=== PATIENT | male | born 1970 | race Caucasian/White ===

== ENCOUNTER 2025-05-04 07:57 | Outpatient (AMB) | payer BC, SELFPAY ==
--- OUTSIDE RECORDS SUMMARY | 2021-12-28 15:49 | XMS_ITS | Encounter Summary ---
Author Organization [facility] Address [address] [place] [address] Care Team Providers Care Aircraft Power Plant Assembler Name Role Phone Alyson Maher MD Unavailable [phone] Will Roman MD Primary Care Provider Encounter Details Date Type Department Care Team (Late st Contact Info) Description 12/28/2021 3:49 PM EDT Hospital Encounter [facility] [address] [place] [address] Jah Bess PA Social History [...] on filedocumented in this encounter Care Teams Aircraft Power Plant Assembler Relationship Specialty Start Date End Date Will Roman MD PCP - General Medicine Hospitalist 05/26/19 Alyson Maher MD Hematology Oncology 04/04/19 documented as of this encounter
--- OUTSIDE RECORDS SUMMARY | 2024-08-08 14:19 | XMS_ITS | Encounter Summary ---
Author Organization [facility] Address [address] [place] [address] Care Team Providers Care Delinquent Account Clerk Name Role Phone Alyson Maher MD Unavailable [phone] Will Roman MD Primary Care Provider Will Roman MD Unavailable [phone] Encounter Details Date Type Department Care Team (Late st Contact Info) Description 08/08/2024 1:19 PM EST Hospital Encounter [facility] [address] [place] [address] Social History Tobacco Use Types Packs/Day Years [...] EDT Sexual Orientation Choose not to disclose 2022 9:10 AM EDT documented as of this encounter Plan of Treatment Not on file documented as of this encounter Procedures Procedure Name Priority Date/Time Associated Diagnosis Comments XR CHEST 2 VIEWS STAT 08/08/2024 1:28 PM EST Acute cough documented in this encounter Results * XR Chest 2 views (08/08/2024 1:28 PM EST) Anatomical Region Laterality Modality Chest Computed Radiogr aphy 08/08/2024 1:28 PM EST Impressions 08/08/2024 1:30 PM EST 1. No evidence of focal consolidation or pleural effusion. 2. Question nipple versus nodule right lower lung zone. A Significant finding has been communicated to Radiology Nail Specialist for provider notification via the [employer] Findings Application on 08/08/2024 1:30 PM, Message ID [id number]. Narrative 08/08/2024 1:30 PM EST XR CHEST 2 VIEWS: 08/08/2024 1:19 PM CLINICAL HISTORY: Cough x 1 week with fever, rule out pneumonia. Acute cough. COMPARISON:There are no prior studies for comparison FINDINGS: The osseous structures are intact. No focal lobar consolidation. No evidence of pleural effusion. No evidence of pneumothorax. Small nodularity superimposed right lower lung zone possibly representing nipple shadow. Consider repeat examination with nipple markers. The heart and mediastinum are unremarkable. Procedure Note Alfie Montero MD - 08/08/2024 XR CHEST 2 VIEWS: 08/08/2024 1:19 PM CLINICAL HISTORY: Cough x 1 week with fever, rule out pneumonia. Acute cough. COMPARISON:There are no prior studies for comparison FINDINGS: The osseous structures are intact. No focal lobar consolidation. No evidence of pleural effusion. No evidence of pneumothorax. Small nodularity superimposed right lower lung zone possibly representingnipple shadow. Consider repeat examination with nipple markers. The heart and mediastinum are unremarkable. IMPRESSION: 1. No evidence of focal consolidation or pleural effusion. 2. Question nipple versus nodule right lower lung zone. A Significant finding has been communicated to Radiology Nail Specialist forprovider notification via the [employer] FindingsApplication on 08/08/2024 1:30 PM, Message ID [id number]. Aaron Alvarado II, RADHIKA IMTish DIAGNOSTIC IMAGING ORDERABLES Final Result documented in this encounter Visit Diagnoses Not on filedocumented in this encounter Care Teams Delinquent Account Clerk Relationship Specialty Start Date End Date Will Roman MD PCP - General Medicine Hospitalist 05/26/19 Will Roman MD [address] [place] [address] PCP - [place] [employer] Attributed 07/12/24 Alyson Maher MD Hematology Oncology 04/04/19 documented as of this encounter
--- OUTSIDE RECORDS SUMMARY | 2025-05-03 14:30 | XMS_ITS | Encounter Summary ---
Author Organization [facility] Address [address] [place] [address] Care Team Providers Care Pin Drafting Machine Operator Name Role Phone Will Roman Primary Care Provider [phone] Reason for Visit * Reason Comments Follow-up Encounter Details Date Type Department Care Team (Latest Contact Info) Description 05/03/2025 2:30 PM EDT Office Visit Cardiology - [place] [address] [facility] [address] [place] [id number] Pablo Sullivan MD [address] [facility] [address] [place] [phone] ASHD (arteriosclerotic heart disease) (Primary Dx); Pure hypercholesterolemia Social History Tobacco Use Types Packs/Day Years Used Date Smoking Tobacco: Never Smokeless Tobacco: Never Alcohol Use Standard Drinks/Week Comments Yes 28 (1 standard drink = 0.6 oz pu re alcohol) Sex and Gender Information Value Date Recorded Sex Assigned at Not on file Legal Sex Male 7:29 AM EST Gender Identity Not on file Sexual Orientation Not on file documented as of this encounter Last Filed Vital Signs Vital Sign Reading Time Taken Comments Blood Pressure 120/86 05/03/2025 2:56 PM EDT Pulse 55 05/03/2025 2:56 PM EDT Temperature - - Respiratory Rate - - Oxygen Saturation - - Inhaled Oxygen Concentration - - Weight 70.8 kg (156 lb) 05/03/2025 2:56 PM EDT Height 167.6 cm (5' 6 ) 05/03/2025 2:56 PM EDT Body Mass Index 25.18 05/03/2025 2:56 PM EDT documented in this encounter Progress Notes * Pablo Sullivan MD - 05/03/2025 2:30 PM EDT CARDIOLOGY OFFICE NOTE Name: Faheem Richards Date of : 1970 Age: 54 y.o. Gender: male Visit Date: 05/03/2025 Primary: Andrhina Roman HISTORY & PHYSICAL EXAM CC / HPI: Faheem Richards presents to me for follow-up. Patient presents for follow-up and he isdoing well from a cardiac standpoint his biggest issue is he is having right foot pain is being followed by podiatry. He usually is very active however because of the foot issues and leg issues he has been limited. Reviewing his blood work the blood work previous to this last 1 was excellent however the last 1 did show elevated triglycerides and admittedly he has been using a lot of carbohydratesand also drinking a fair amount of beer and also because of his foot he has been less active and that likely explains his high triglycerides. ASSESSMENT 1. ASHD/coronary calcium score of 1786.7 done 10/22/2021 2. Hyperlipidemia RECOMMENDATION / PLAN Cardiac catheterization at [facility] done 01/03/2022 showed nonobstructive coronary disease. He has been clinically stable at this point we just continue aggressive risk factor modification. Cholesterol appears to be acceptable and the one previous to the last blood work was excellent he just has to cut down on his carbohydrates we will repeat his blood work if his triglycerides remain elevated we can consider omega-3 fish oil and/or fenofibrate. Stable from a cardiac standpoint I am happy to see him on a yearly basis sooner if there is any problems. REVIEW OF SYSTEMS Regarding the patient symptoms, denies any chest pain, shortness of Breath, PND, orthopnea , pre-syncope , or syncopal events and or palpititation. Past Cardiovascular / Medical / Surgical MEDICATIONS Medications Ordered Prior to Encounter[1] Allergies: is allergic to latex and nsaids (non-steroidal anti-inflammatory drug). Social History[2] Problem List[3] Medical History[4] Vitals: 05/03/25 1456 BP: 120/86 Pulse: 55 PHYSICAL EXAM BP Readings from Last 3 Encounters: 05/03/25 120/86 09/14/24 120/78 04/13/24 124/82 Pulse Readings from Last 3 Encounters: 05/03/25 55 09/14/24 67 04/13/24 62 Wt Readings from Last 3 Encounters: 05/03/25 70.8 kg (156 lb) 09/14/24 71.2 kg (157 lb) 04/13/24 70.8 kg (156 lb) Body mass index is 25.18 kg/m??. Appearance: Conversant, no acute distress. Eyes: Normal conjunctiva and lids. No scleral icterus. ENMT: Moist oropharynx. Chest: Clear to auscultation with normal effort and excursion. CV Exam: Regular rate and rhythm S1-S2 negative murmurs clicks rubs noted. Abdomen: NABS/ soft, non tender.Positive bowel sounds. Extremeties: Well perfused. No cords, clubbing. Edema: Negative Skin:No visible bruising. Neuro: Alert, oriented, and appropriate. Grossly non focal. Psychiatric: Normal mood and affect. PERTINENT CARDIOVASCULAR TESTS & PROCEDURES Encounter Date: 05/03/25 ECG 12 lead Impression Sinus bradycardia with first-degree AV block Minimal voltage criteria for LVH Lab Results Component Value Date CHOL 204 (H) 03/01/2025 HDL 47 03/01/2025 LDL 03/01/2025 Comment: LDL cholesterol not calculated. Triglyceride levels greater than 400 mg/dL invalidate calculated LDL results. Reference range: <100 Desirable range <100 mg/dL for primary prevention; <70 mg/dL for patients with CHD or diabetic patients with > or = 2 CHD risk factors. LDL-C is now calculated using the Luis-Fauzia calculation, which is a validated novel method providing better accuracy than the Friedewald equation in the estimation of LDL-C. Luis ROSARIO et al. NAIDA. 2013;310(19): 4784-3653 (http://education.CohesiveFT.Xeros/faq/KBU997) TRIG 434 (H) 03/01/2025 No results found for this or any previous visit. No results found for: NA , K , CL , CO2 , GLUCOSE , BUN , CREATININE , CALCIUM , PROT , ALBUMIN , BILITOT , AST , ALT , URICACID , PHOS , MG , ALKPHOS , CKTOTAL , EGFR Pablo Sullivan MD, , [facility] Cardiac and Vascular Medicine [1] Current Outpatient Medications on File Prior to Visit Medication Sig Dispense Refill aspirin 81 mg chewable tablet Chew 1 tablet (81 mg total) daily. atorvastatin (LIPITOR) 80 mg tablet TAKE 1 TABLET BY MOUTH EVERY DAY 90 tablet 3 cholecalciferol (VITAMIN D-3) 25 mcg (1,000 unit) capsule Take 3 capsules (3,000 Units total) by mouth daily. ezetimibe (ZETIA) 10 mg tablet Take 1 tablet (10 mg total) by mouth 1 (one) time each day. 90 tablet 2 albuterol HFA (PROAIR HFA ; PROVENTIL HFA ; VENTOLIN HFA) 90 mcg/actuation inhaler Inhale 1-2 puffsby mouth every 6 hours as needed. (Patient not taking: Reported on 05/03/2025) budesonide (PULMICORT) 180 mcg/actuation inhaler Inhale 2 puffs by mouth 2 times daily. (Patient not taking: Reported on 05/03/2025) folic acid (FOLVITE) 400 mcg tablet Take 1 tablet (400 mcg total) by mouth daily. (Patient not taking: Reported on 05/03/2025) magnesium oxide 500 mg capsule Take 1 tablet by mouth daily. (Patient not taking: Reported on 05/03/2025) multivitamin tablet Take 1 tablet by mouth daily. (Patient not taking: Reported on 05/03/2025) predniSONE (DELTASONE) 50 mg tablet Take 1 tablet (50 mg total) by mouth 1 (one) time each day. with food (Patient not taking: Reported on 05/03/2025) No current facility-administered medications on file prior to visit. [2] Social History Tobacco Use Smoking status: Never Smokeless tobacco: Never Substance Use Topics Alcohol use: Yes Alcohol/week: 28.0 standard drinks of alcohol Drug use: No [3] Patient Active Problem List Diagnosis ASHD (arteriosclerotic heart disease) Pure hypercholesterolemia [4] Past Medical History: Diagnosis Date Alcohol dependence ([facility] V24, [facility] V28) DX:Alcohol dependence ([facility]) Asthma DX:Asthma Diplopia DX:Diplopia;COMMENT:S/P R ORBITAL FRACTURE Glaucoma DX:Glaucoma;COMMENT:BORDERLINE Hyperlipidemia DX:Hyperlipidemia Lung tumor (benign) DX:Lung tumor (benign) Osteoarthritis DX:Osteoarthritis Pneumonia DX:Pneumonia documented in this encounter Plan of Treatment Upcoming Encounters Date Type Department Care Team (Late st Contact Info) Description 05/03/2026 2:30 PM EDT Office Visit Cardiology - [place] [address] [place] [address] Pablo Sullivan MD [address] [place] [address] Scheduled Orders Name Type Priority Associated Diagnoses Orde r Schedule Lipid panel Lab Routine ASHD (arteriosclerotic heart disease) Pure hypercholesterolemia 1 Occurrences starting 05/03/2025 until 05/03/2026 LDL cholesterol, direct Lab Routine ASHD (arteriosclerotic heart disease) Pure hypercholesterolemia 1 Occurrences starting 05/03/2025 until 05/03/2026 documented as of this encounter Procedures Procedure Name Priority Date/Time Associated Diagnosis Comments ECG 12-LEAD Routine 05/03/2025 4:38 PM EDT ASHD (arteriosclerotic heart disease) Pure hypercholesterolemia documented in this encounter Results * ECG 12 lead (05/03/2025 4:38 PM EDT) Impressions Pablo Sullivan MD - 05/03/2025 4:38 PM EDT Sinus bradycardia with first-degree AV block Minimal voltage criteria for LVH us Pablo Sullivan MD ECG ORDERABLES Final Result documented in this encounter Visit Diagnoses Diagnosis ASHD (arteriosclerotic heart disease)- Primary Coronary atherosclerosis of unspecified type of vessel, [place] or graft Pure hypercholesterolemia documented in this encounter Care Teams Pin Drafting Machine Operator Relationship Specialty Start Date End Date Jessie Mukeshrhina [address] [facility] [place] PCP - General Family Medicine 09/04/21 documented as of this encounter
--- OUTSIDE RECORDS SUMMARY | 2025-05-04 08:00 | XMS_ITS | Encounter Summary ---
Author Organization [facility] Address [address] [place] [address] Care Team Providers Care Logistics Technician Name Role Phone Alyson Maher MD Unavailable Will Roman MD Primary Care Provider [phone] Will Roman MD Unavailable Pablo Sullivan MD Unavailable [phone] Will Roman MD Unavailable Encounter Details Date Type Department Care Team (Late st Contact Info) Description 07/11/2019 Scanned Document [facility] Heart & V[facility] [place] at [address] [phone] Alyson Maher MD [address] [place] [address] Social History Tobacco Use Types Packs/Day Years Used Date Smoking Tobacco: Never Smokeless Tobacco: Never Alcohol Use Standard Drinks/Week Comments Yes 0 (1 standard drink = 0.6 oz pur e alcohol) social Sex and Gender Information Value Date Recorded Sex Assigned at Male 12/21/2022 9:10 AM EDT Legal Sex Male 8:50 AM EDT Gender Identity Male 12/21/2022 9:10 AM EDT Sexual Orientation Choose not to disclose 2022 9:10 AM EDT documented as of this encounter Plan of Treatment Not on file documented as of this encounter Visit Diagnoses Not on filedocumented in this encounter Care Teams Logistics Technician Relationship Specialty Start Date End Date Will Roman MD PCP - General Medicine Hospitalist 05/26/19 Will Roman MD [address] [address] PCP - [place] [employer] Attributed 02/10/20 08/11/21 Will Roman MD [address] [address] PCP - [place] [employer] Attributed 07/12/24 Alyson Maher MD Hematology Oncology 04/04/19 Pablo Sullivan MD [address] [address] Cardiovascular Disease 09/12/24 documented as of this encounter
--- OUTSIDE RECORDS SUMMARY | 2025-05-04 08:00 | XMS_ITS | Encounter Summary ---
Author Organization [facility] Address [address] [place] [address] Care Team Providers Care Medical Coding Specialist Name Role Phone Alyson Maher MD Unavailable [phone] Manohar Jensen MD Primary Care Provider [phone] Will Roman MD Primary Care Provider [phone] Will Roman MD Unavailable [phone] Pablo Sullivan MD Unavailable [phone] Will Roman MD Unavailable [phone] Encounter Details Date Type Department Care Team (Late st Contact Info) Description 05/22/2019 Scanned Document [facility] ORTHO SURGERY SCAN Orthopedic Surgery, Scan Social History Tobacco Use Types Packs/Day Years [...] on filedocumented in this encounter Care Teams Medical Coding Specialist Relationship Specialty Start Date End Date Manohar Jensen MD [address] [facility] [address] [place] [address] PCP - General Internal Medicine 05/01/19 05/25/19 Will Roman MD [address] [facility] [address] [place] [address] PCP - General Medicine Hospitalist 05/26/19 Will Roman MD [address] [place] [address] PCP - [place] [employer] Attributed 02/10/20 08/11/21 Will Roman MD [address] [place] [address] PCP - [place] [employer] Attributed 07/12/24 Alyson Maher MD Hematology Oncology 04/04/19 Pablo Sullivan MD [address] [place] [address] Cardiovascular Disease 09/12/24 documented as of this encounter
--- OUTSIDE RECORDS SUMMARY | 2025-05-04 08:00 | XMS_ITS | Encounter Summary ---
Author Organization Formerly [facility] Address [address] [place] [address] Care Team Providers Care Brewery Technician Name Role Phone Alyson Maher MD Unavailable [phone] Will Roman MD Primary Care Provider Pablo Sullivan MD Unavailable [phone] Will Roman MD Unavailable [phone] Reason for Visit * Reason Comments Medication Refill Encounter Details Date Type Department Care Team (Late st Contact Info) Description 02/06/2022 Refill [facility] Primary Care [address] [place], [place] [phone] Will Roman MD [address] [place] [address] [address] [place], [place] Acute right ankle pain; Closed avulsion fracture of right ankle, initial encounter; Occupational injury Social History Tobacco Use Types Packs/Day Years Used Date Smoking Tobacco: Never Smokeless Tobacco: Never Alcohol Use Standard Drinks/Week Comments Yes 42 (1 standard drink = 0.6 oz pu re alcohol) 6 daily PHQ-2 Answer Date Recorded PHQ-2 Total Score [...] documented as of this encounter Visit Diagnoses Diagnosis Acute right ankle pain Closed avulsion fracture of right ankle, initial encounter Occupational injury documented in this encounter Care Teams Brewery Technician Relationship Specialty Start Date End Date Will Roman MD PCP - General Medicine Hospitalist 05/26/19 Will Roman MD [address] [place] [address] PCP - [place] [employer] Attributed 07/12/24 Alyson Maher MD Hematology Oncology 04/04/19 Pablo Sullivan MD Cardiovascular Disease 09/12/24 documented as of this encounter
--- OUTSIDE RECORDS SUMMARY | 2025-05-04 08:00 | XMS_ITS | Encounter Summary ---
Author Organization Formerly [facility] Address [address] [place] [address] Care Team Providers Care Checker Name Role Phone Alyson Maher MD Unavailable [phone] Will Roman MD Primary Care Provider [phone] Pablo Sullivan MD Unavailable [phone] Will Roman MD Unavailable [phone] Encounter Details Date Type Department Care Team (Late st Contact Info) Description 01/15/2022 Scanned Document [facility] PRIMARY [facility] SCAN Primary Care, Scan Social History Tobacco Use Types Packs/Day [...] not to disclose 2022 9:10 AM EDT COVID-19 Exposure Response Date Recorded In the last 10 days, have yo u been in contact with someone who was confirmed or suspected to have Coronavirus/COVID-19? Unable to assess 12/28/2021 3:07 PM EDT documented as of this encounter Plan of Treatment Not on file documented as of this encounter Visit Diagnoses Not on filedocumented in this encounter Care Teams Checker Relationship Specialty Start Date End Date Will Roman MD PCP - General Medicine Hospitalist 05/26/19 Will Roman MD [address] [address] PCP - [place] [employer] Attributed 07/12/24 Alyson Maher MD Hematology Oncology 04/04/19 Pablo Sullivan MD Cardiovascular Disease 09/12/24 documented as of this encounter
--- OUTSIDE RECORDS SUMMARY | 2025-05-04 08:01 | XMS_ITS | Encounter Summary ---
Author Organization [facility] Address [address] [place] [address] Care Team Providers Care Risk Consulting Treasury Director Name Role Phone Alyson Maher MD Unavailable [phone] Will Roman MD Primary Care Provider Will Roman MD Unavailable Pablo Sullivan MD Unavailable [phone] Will Roman MD Unavailable Encounter Details Date Type Department Care Team (Late st Contact Info) Description 08/15/2019 Scanned Document [facility] [place] [facility] [address] [place] [phone] Tucker Murray MD [address] [place] [address] Social History Tobacco Use Types Packs/Day Years Used Date Smoking Tobacco: Never Smokeless Tobacco: Never Alcohol Use Standard Drinks/Week Comments Yes 6 (1 standard drink = 0.6 oz pur e alcohol) daily Sex and Gender Information Value Date Recorded [...] on filedocumented in this encounter Care Teams Risk Consulting Treasury Director Relationship Specialty Start Date End Date Will Roman MD PCP - General Medicine Hospitalist 05/26/19 Will Roman MD [address] [address] PCP - [place] [employer] Attributed 02/10/20 08/11/21 Will Roman MD [address] [address] PCP - [place] [employer] Attributed 07/12/24 Alyson Maher MD Hematology Oncology 04/04/19 Pablo Sullivan MD [address] [address] Cardiovascular Disease 09/12/24 documented as of this encounter
--- OUTSIDE RECORDS SUMMARY | 2025-05-04 08:01 | XMS_ITS ---
[facility] Name [facility] Results Test Name/Text Value Interpretation Date Range Source Prealb SerPl-mCnc 28.0 mg/dL Normal 03/02/2025 21 - 43 [facility] Bilirub SerPl-mCnc 1.3 mg/dL Above high normal 03/02/2025 0. 2 - 1.2 [facility] BUN SerPl-mCnc 18.0 mg/dL Normal 03/02/2025 7 - [address] Chloride SerPl-sCnc 101.0 mmol/L Normal 03/02/2025 98 - 1 10 [facility] BUN/Creat SerPl SEE NOTE: 03/02/2025 6 - [address] Sodium SerPl-sCnc 137.0 mmol/L Normal 03/02/2025 135 - 14 6 [facility] Potassium SerPl-sCnc 4.4 mmol/L Normal 03/02/2025 3.5 - 5 .3 [facility] ALT SerPl-cCnc 27.0 U/L Normal 03/02/2025 9 - 46 [facility] CO2 SerPl-sCnc 27.0 mmol/L Normal 03/02/2025 20 - 32 [facility] Albumin/Glob SerPl 1.6 (calc) Normal 03/02/2025 1 - 2.5 [facility] eGFRcr SerPlBld CKD-EPI 2020 102.0 mL/min/1.73m2 Normal 03/02/2025 - [facility] AST SerPl-cCnc 29.0 U/L Normal 03/02/2025 10 - 35 [facility] Calcium SerPl-mCnc 9.5 mg/dL Normal 03/02/2025 8.6 - 10.3 [facility] Glucose SerPl-mCnc 99.0 mg/dL Normal 03/02/2025 65 - 139 [facility] Albumin SerPl-mCnc 4.4 g/dL Normal 03/02/2025 3.6 - 5.1 [facility] Creat SerPl-mCnc 0.84 mg/dL Normal 03/02/2025 0.7 - 1.3 Q [facility] ALP SerPl-cCnc 89.0 U/L Normal 03/02/2025 35 - 144 [facility] Globulin Ser Calc-mCnc 2.8 g/dL (calc) Normal 03/02/2025 1.9 - 3.7 [facility] Prot SerPl-mCnc 7.2 g/dL Normal 03/02/2025 6.1 - 8.[address] Basophils # Bld Auto 68.0 cells/uL Normal 03/02/2025 0 - 200 [facility] Platelet # Bld Auto 233.0 Thousand/uL Normal 03/02/2025 140 - 400 [facility] RDW RBC Auto 12.8 % Normal 03/02/2025 11 - 15 [facility] RBC Auto 92.2 fL Normal 03/02/2025 80 - 100 [facility] Lymphocytes # Bld Auto 2246.0 cells/uL Normal 03/02/2025 850 - 3900 [facility] Lymphocytes NFr Bld Auto 39.4 % Normal 03/02/2025 [facility] PMV Bld Woody-Mayda 10.8 fL Normal 03/02/2025 7.5 - 12.5 [facility] Hgb Bld-mCnc 14.3 g/dL Normal 03/02/2025 13.2 - 17.1 [facility] Neutrophils NFr Bld Auto 48.0 % Normal 03/02/2025 [facility] Monocytes NFr Bld Auto 8.4 % Normal 03/02/2025 [facility] MCH RBC Qn Auto 30.9 pg Normal 03/02/2025 27 - [address] Eosinophil NFr Bld Auto 3.0 % Normal 03/02/2025 [facility] Basophils NFr Bld Auto 1.2 % Normal 03/02/2025 [facility] Monocytes # Bld Auto 479.0 cells/uL Normal 03/02/2025 200 - 950 [facility] Neutrophils # Bld Auto 2736.0 cells/uL Normal 03/02/2025 1500 - 7800 [facility] MCHC RBC Auto-EntMCnc 33.5 g/dL Normal 03/02/2025 32 - 36 [facility] RBC # Bld Auto 4.63 Million/uL Normal 03/02/2025 4.2 - 5.8 [facility] Hct VFr Bld Auto 42.7 % Normal 03/02/2025 38.5 - 50 [facility] EST WBC # Bld Auto 5.7 Thousand/uL Normal 03/02/2025 3.8 - 10.8 [facility] Eosinophil # Bld Auto 171.0 cells/uL Normal 03/02/2025 15 - 500 [facility] Trigl SerPl-mCnc 122.0 mg/dL Normal 09/13/2024 - 150 [facility] NonHDLc SerPl-mCnc 78.0 mg/dL (calc) Normal 09/13/2024 - 130 [facility] LDLc SerPl Calc-mCnc 58.0 mg/dL (calc) Normal 09/13/2024 [facility] Cholest/HDLc SerPl 2.3 (calc) Normal 09/13/2024 - 5 [facility] HDLc SerPl-mCnc 59.0 mg/dL Normal 09/13/2024 - QU EST Cholest SerPl-mCnc 137.0 mg/dL Normal 09/13/2024 - 200 [facility] PROSTATE SPECIFIC AG TOTAL 0.5 ng/mL Normal 02/28/2024 - [facility] PSA, % FREE 40.0 % (calc) Normal 02/28/2024 25 - [facility] R[facility]OL FREE PSA 0.2 ng/mL Normal 02/28/2024 [facility] History of Medication Use Medication Directions Dispensed Refills Start Date End Date Stat 09/21/2024 5 active budesonide (PULMICORT) 180 MCG/ACT inhaler Inhale 2 puffs 2 (two) times a day. Rinse mouth after use. Please instruct patient on use of this inhaler 08/31/2024 active budesonide (PULMICORT) 180 mcg/actuation inhaler Inhale 2 puffs by mouth 2 times daily. 08/31/2024 active meloxicam (MOBIC) 15 MG tablet 08/21/2024 active 08/17/2024 5 active 08/17/2024 5 active acetaminophen (TYLENOL) tablet 975 mg 975 mg, Oral, Once, On Wed08/08/24 at 1330, For 1 dose 08/08/2024 5 completed albuterol (PROVENTIL HFA; VENTOLIN HFA) 108 (90 Base) MCG/ACT inhaler Inhale 1-2 puffs 4 times daily (every 6 hours) as needed for wheezing. 08/08/2024 active albuterol HFA (PROAIR HFA ; PROVENTIL HFA ; VENTOLIN HFA) 90 mcg/actuation inhaler Inhale 1-2 puffs by mouth every 6 hours as needed. 08/08/2024 active azithromycin (ZITHROMAX) 250 MG tablet Take 2 tablets on day 1, then 1 tablet a day for days 2 through 5 08/08/2024 active predniSONE (DELTASONE) 50 mg tablet Take 1 tablet (50 mg total) by mouth 1 (one) time each day. with food 08/08/2024 active predniSONE (DELTASONE) 50 MG tablet Take 1 tablet (50 mg total) by mouth daily. With food. 08/08/2024 active proMETHAZINE-dextrome thorphan (proMETHAZINE-DM) 6.25-15 MG/5ML syrup Take 5 mL by mouth 4 times daily (every 6 hours) as needed for cough. 08/08/2024 active 07/18/2024 5 completed 07/18/2024 5 active 07/18/2024 5 completed 07/18/2024 5 completed 07/18/2024 5 completed 07/18/2024 5 completed 07/18/2024 5 active 07/18/2024 5 completed 07/18/2024 completed 07/18/2024 completed 07/18/2024 completed 07/18/2024 completed atorvastatin (LIPITOR) 80 mg tablet Take 1 tablet (80 mg total) by mouth daily. 09/27/2023 active atorvastatin (LIPITOR) tablet 80 mg Take 1 tablet (80 mg total) by mouth daily. 09/27/2023 active ezetimibe (ZETIA) 10 mg tablet Take 1 tablet (10 mg total) by mouth 1 (one) time each day. 03/30/2023 active ezetimibe (ZeTIA) 10 MG tablet Take 1 tablet (10 mg total) by mouth daily. 03/30/2023 active ezetimibe (ZETIA) tablet 10 mg Take 1 tablet (10 mg total) by mouth daily. 03/30/2023 active predniSONE (DELTASONE) 20 MG tablet Take 1 tablet (20 mg total) by mouth daily. With food. 03/11/2023 active 01/19/2023 3 completed 01/01/2023 3 completed 01/01/2023 3 completed 01/01/2023 3 completed 01/01/2023 3 completed 01/01/2023 3 completed 01/01/2023 3 completed 12/25/2022 5 suspended methocarbamol (ROBAXIN) 750 MG tablet Take 1 tablet (750 mg total) by mouth 3 (three) times a day as needed for muscle spasms (pain). 12/25/2022 active oxyCODONE (ROXICODONE) 5 MG immediate release tablet Take 1-2 tablets (5-10 mg total) by mouth 4 times daily (every 6 hours) as needed (pain). 12/25/2022 active ergocalciferol (VITAMIN D2,DRISDOL) 16265 units Cap Take 1 capsule (50,000 Units total) by mouth once a week. Wednesday12/24/2022 active 09/21/2022 3 completed 09/21/2022 completed 08/18/2022 3 active PANTOprazole (PROTONIX) 40 MG EC tablet Take 1 tablet (40 mg total) by mouth every morning before breakfast. 06/08/2022 active folic acid (FOLVITE) 1 MG tablet Take 1 tablet (1,000 mcg total) by mouth daily. 01/20/2022 active albuterol (PROVENTIL HFA; VENTOLIN HFA) 108 (90 Base) MCG/ACT inhaler Inhale 2 puffs every 4 (four) hours as needed for wheezing or shortness of breath. Please instruct patient on use of this inhaler 08/01/2021 active atorvastatin (LIPITOR) 20 MG tablet TAKE 1 TABLET BY MOUTH EVERY DAY 04/21/2021 suspended acetaminophen (TYLENOL) 500 MG tablet Take 1-2 tablets (500-1,000 mg total) by mouth 3 times daily (every 8 hours) as needed (pain). active ascorbic acid (VITAMIN C) 500 MG tablet Take 1 tablet (500 mg total) by mouth 2 times a day. active Aspirin 81 MG Cap Take by mouth. active aspirin 81 mg chewable tablet Chew 1 tablet (81 mg total) daily. active aspirin enteric coated (ECOTRIN LOW STRENGTH) 81 MG EC tablet Take 1 tablet (81 mg total) by mouth 2 times a day. active atorvastatin (LIPITOR) 80 MG tablet Take 1 tablet (80 mg total) by mouth nightly. active cholecalciferol (VITAMIN D-3) 25 mcg (1,000 unit) capsule Take 3 capsules (3,000 Units total) by mouth daily. active Cholecalciferol (VITAMIN D) 2000 units Cap Take 1 capsule by mouth daily. active Cyanocobalamin (VITAMIN B12 PO) Take by mouth. acti ve folic acid (FOLVITE) 400 mcg tablet Take 1 tablet (400 mcg total) by mouth daily. active magnesium oxide 500 mg capsule Take 1 tablet by mouth daily. active meloxicam (MOBIC) 15 MG tablet Take 1 tablet (15 mg total) by mouth nightly. active Multiple Vitamin tablet Take 1 tablet by mouth daily. active multivitamin tablet Take 1 tablet by mouth daily. active No Known Medications com pleted senna-docusate (SENNA-S) 8.6-50 MG Take 1-2 tablets by mouth 2 (two) times a day as needed for constipation. active Allergies Allergen Reaction Severity Comment Documented Date Source Statu s NSAIDS CHRONIC LIVER DISEASE 09/11/2015 [facility] active NSAIDS (NON-STEROIDAL ANTI-INFLAMMAT ORY DRUG) CHRONIC LIVER DISEASE 09/11/2015 [facility] active LATEX OTHERRASH/DERM ATITISOTHER (SEE COMMENTS) Reaction unknown 08/23/2015 [facility] active Problems Problem Status Onset Date Problem Type Date of Resolution Source Hypertriglyceridemia active ProblemAct [facility] Mixed hyperlipidemia active ProblemAct [facility] Mitral regurgitation active ProblemAct [facility] ASHD (arteriosclerotic heart disease) active EncounterDiagnosisAct [facility]_T HSFRAN Arthritis of knee active ProblemAct [facility] Liver enzyme elevation active ProblemAct [facility] Mitral valve insufficiency active ProblemAct [facility] Hypertriglyceridemia active ProblemAct [facility] Malaise active ProblemAct [facility] CAD (coronary artery disease) active ProblemAct [facility] Epigastric pain active ProblemAct [facility] Asthma active ProblemAct [facility] Erectile dysfunction active ProblemAct [facility] Elevated ferritin active ProblemAct [facility] Weight loss active ProblemAct [facility] Hyperlipidemia active ProblemAct [facility] T Fatigue active ProblemAct [facility] Dysphagia active ProblemAct [facility] Nausea active ProblemAct [facility] Immunizations Vaccine Date Source Lot Number Status Influenza Virus Trivalent Sp lit Vaccine (MDV) IM 03/26/2022 [facility] [id number] completed Covid-19 MRNA Vaccine - Pfiz er 12+ (Purple Cap) 2021 [facility] [id number] completed Influenza, Quadrivalent (FLU ARIX, AFLURIA, FLULAVAL, FLUZONE) Preservative Free IM 05/03/2021 CCT [id number] completed Covid-19 (Pfizer) Dilution Required 11/07/2020 [facility] [id number] completed Covid-19 (Pfizer) Dilution Required 10/17/2020 [facility] [id number] completed Influenza (AFLURIA/FLUZONE) Inactivated/Split Quadrivalent with Preservative IM 05/14/2020 [facility] completed Influenza (AFLURIA/FLUZONE) Inactivated/Split Quadrivalent with Preservative IM 05/13/2020 [facility] completed Influenza Inactivated/Split Preservative Free IM 04/25/2019 [facility] completed Encounters Encounter Type Encounter Reason Primary Diagnosis Location Date Ambulatory Follow-up Atherosclerotic heart disease of [place] coronary artery without angina pectoris [facility] 5 Ambulatory ROUTINE Unilateral prima ry osteoarthritis, right hip [facility] 5 Ambulatory Pre-op Exam Atherosclerotic heart disease of [place] coronary artery without angina pectoris [facility] 5 Ambulatory Encounter for other preprocedural examination Encounter for other preprocedural examination [facility] 5 Ambulatory Influenza due to oth er identified influenza virus with other respiratory manifestations Influenza due to other identified influenza virus with other respiratory manifestations [facility] 5 Ambulatory Follow-up Follow-up [facility] 5 Ambulatory [facility] 5 Ambulatory Cough Cough [facility] 5 Ambulatory Pure hyperglyceridemia Pure hyperglycerid emia [facility] 4 Ambulatory BENIGN PROSTATIC HYPERPLASIA WITHOUT LOWER URINRY TRACT SYMP [facility] 4 Ambulatory UR Con [facility] 4 Ambulatory Cellulitis of left upper limb Cellulitis of left upper limb [facility] 4 Ambulatory Unilateral prima ry osteoarthritis, right knee [facility] 3 Ambulatory Sprain of anteri or cruciate ligament of right knee, subsequent encounter [facility] 3 Ambulatory Abnormal weight loss [facility] 2 Ambulatory Abnormal weight loss [facility] 2 Ambulatory Alcohol dependen ce, uncomplicated [facility] 2 Ambulatory Abnormal levels of other serum enzymes [facility] 2 Ambulatory Other specified abnormal findings of blood chemistry [facility] 2 Ambulatory Dehydration [facility] 2 Ambulatory [facility] 2 Ambulatory Pain in right an kle and joints of right foot [facility] 2 Ambulatory Acute bronchitis , unspecified [facility] 2 Ambulatory Contact with and (suspected) exposure to covid-19 [facility] 2 Ambulatory Contact with and (suspected) exposure to covid-19 [facility] 2 Ambulatory Contact with and (suspected) exposure to covid-19 [facility] 2 Ambulatory [facility] 1 Care Team Organization Name Specialty Phone Email Start Date End Da te [facility] Primary Care 05/03/2025 [facility] CHANEL Primary Care 11/14/2024 02/16/2025 [facility] 09/10/2024 [facility] 08/21/2024 [facility] CHADWICK Rodriguez Primary Care 07/17/2024 [facility] 05/22/2024 [facility] Primary Care 05/19/2024 [facility] PCP VERIFY Primary Care [facility] 02/25/20242024 [facility] Primary Care 02/25/2024 [facility] Primary Care 02/25/2024 [facility] 05/13/2023 024 [facility] 04/02/2023 024 [facility]/08/[facility]2210[facility] [facility] Primary Care 09/08/202103/26
--- OUTSIDE RECORDS SUMMARY | 2025-05-04 08:01 | XMS_ITS | Encounter Summary ---
Author Organization [facility] Address [address] [place] [address] Care Team Providers Care Verifier Name Role Phone Alyson Maher MD Unavailable Will Roman MD Primary Care Provider Pablo Sullivan MD Unavailable [phone] Will Roman MD Unavailable [phone] Encounter Details Date Type Department Care Team (Late st Contact Info) Description 08/29/2021 Scanned Document [facility] Heart & Vascular [place] [facility] [address] [place] [id number] Pablo Farah, LOIDA [address] [place], [place] [id number] Social History Tobacco Use Types Packs/Day Years Used Date Smoking Tobacco: Never Smokeless Tobacco: Never Alcohol Use Standard Drinks/Week Comments Yes 42 (1 standard drink = 0.6 oz pu re alcohol) 6 daily PHQ-2 Answer Date Recorded PHQ-2 Total Score 0 11/05/2020 Sex and Gender Information Value Date Recorded Sex Assigned at Male 12/21/2022 9:10 AM EDT Legal Sex Male 8:50 AM EDT Gender Identity Male 12/21/2022 9:10 AM EDT Sexual Orientation Choose not to disclose 2022 9:10 AM EDT COVID-19 Exposure Response Date Recorded In the last month, have you been in contact with someone who was confirmed or suspected to have Coronavirus / COVID-19? No / Unsure 08/20/2021 2:51 PM EST documented as of this encounter Plan of Treatment Not on file documented as of this encounter Visit Diagnoses Not on filedocumented in this encounter Care Teams Verifier Relationship Specialty Start Date End Date Will Roman MD PCP - General Medicine Hospitalist 05/26/19 Will Roman MD [address] [place] [address] PCP - [place] [employer] Attributed 07/12/24 Alyson Maher MD Hematology Oncology 04/04/19 Pablo Sullivan MD Cardiovascular Disease 09/12/24 documented as of this encounter
--- OUTSIDE RECORDS SUMMARY | 2025-05-04 08:01 | XMS_ITS | Encounter Summary ---
Author Organization [facility] Address [address] [place] [address] Care Team Providers Care Book Reviewer Name Role Phone Alyson Maher MD Unavailable [phone] Will Roman MD Primary Care Provider [phone] Pablo Sullivan MD Unavailable [phone] Will Roman MD Unavailable [phone] Encounter Details Date Type Department Care Team (Late st Contact Info) Description 12/10/2022 Scanned Document [facility] Dav Rodriguez MD [address] [place] [address] Social History Tobacco Use Types Packs/Day Years [...] on filedocumented in this encounter Care Teams Book Reviewer Relationship Specialty Start Date End Date Will Roman MD PCP - General Medicine Hospitalist 05/26/19 Will Roman MD [address] [place] [address] PCP - [place] [employer] Attributed 07/12/24 Alyson Maher MD Hematology Oncology 04/04/19 Pablo Sullivan MD Cardiovascular Disease 09/12/24 documented as of this encounter
--- OUTSIDE RECORDS SUMMARY | 2025-05-04 08:01 | XMS_ITS | Encounter Summary ---
Author Organization [facility] Address [address] [place] [address] Care Team Providers Care Senior Quality Manager Name Role Phone Alyson Maher MD Unavailable Will Roman MD Primary Care Provider Will Roman MD Unavailable Pablo Sullivan MD Unavailable [phone] Will Roman MD Unavailable [phone] Encounter Details Date Type Department Care Team (Late st Contact Info) Description 04/03/2020 Scanned Document [facility] [address] [id number] Deanne Gibbs MD [address] [place] [address] Social History Tobacco Use Types Packs/Day Years [...] have Coronavirus / COVID-19? No / Unsure 04/06/2020 7:59 AM EDT documented as of this encounter Progress Notes * Maryann Peraza MA - 04/03/2020 12:18 PM EDT Patient received results directly from Dr. Gibbs. Recall in 3 years . PCP forwarded results documented in this encounter Plan of Treatment Not on file documented as of this encounter Procedures Procedure Name Priority Date/Time Associated Diagnosis Comments PATHOLOGY REPORT 04/03/2020 12:0 0 AM EDT documented in this encounter Results * (REPORT) PATHOLOGY REPORT (04/03/2020 12:00 AM EDT) us Deanne Gibbs MD PATHOLOGY/CYTOLOGY ORDERABLES F inal Result documented in this encounter Visit Diagnoses Not on filedocumented in this encounter Care Teams Senior Quality Manager Relationship Specialty Start Date End Date Will Roman MD PCP - General Medicine Hospitalist 05/26/19 Will Roman MD [address] [place] [id number] PCP - [place] [employer] Attributed 02/10/20 08/11/21 Will Roman MD [address] [address] PCP - [place] [employer] Attributed 07/12/24 Alyson Maher MD Hematology Oncology 04/04/19 Pablo Sullivan MD [address] [place] [address] Cardiovascular Disease 09/12/24 documented as of this encounter
--- OUTSIDE RECORDS SUMMARY | 2025-05-04 08:01 | XMS_ITS | Patient Health Record ---
Author Organization [facility] Address [address] [place] [address] Care Team Providers Care Paper Tube Grader Name Role Phone Will Roman Primary Care Provider Unavaila ble Allergies Allergen (clinical drug ingredient) Drug/Non Drug Allergy documented on EMR Reaction Allergy Type Onset Date Status Information temporarily unavailable latex (uncoded) Unknown Allergy Active Reason For Referral No Information Social History Sex Assigned At : Social History Observation Description Sex Assigned At Male Problems Problem Type SNOMED Code ICD Code Onset Dates Problem Status W/U Status Risk Notes Problem Information temporarily unavailable 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 [place] [phone] [id number] [employer] Self - patient is the insured Medical (General) History Medical History History ICD Code bronchiole carcinoid tumor Surgical History Surgery Date(Month/Year) right knee replacxement/acl left hip replacement right lung surgery
--- OUTSIDE RECORDS SUMMARY | 2025-05-04 08:01 | XMS_ITS | Encounter Summary ---
Author Organization [facility] Address [address] [place] [address] Care Team Providers Care Underwriting Clerks Supervisor Name Role Phone Alyson Maher MD Unavailable [phone] Will Roman MD Primary Care Provider [phone] Pablo Sullivan MD Unavailable [phone] Will Roman MD Unavailable [phone] Encounter Details Date Type Department Care Team (Late st Contact Info) Description 01/04/2023 Scanned Document [facility] PRIMARY CARE SCAN Primary Care, Scan [...] on filedocumented in this encounter Care Teams Underwriting Clerks Supervisor Relationship Specialty Start Date End Date Will Roman MD PCP - General Medicine Hospitalist 05/26/19 Will Roman MD [address] [place] [id number] PCP - [place] [employer] Attributed 07/12/24 Alyson Maher MD Hematology Oncology 04/04/19 Pablo Sullivan MD Cardiovascular Disease 09/12/24 documented as of this encounter
--- OUTSIDE RECORDS SUMMARY | 2025-05-04 08:01 | XMS_ITS | Clinical Summary ---
Author Organization [facility] Address [address] [place] [address] Care Team Providers Care Wax Ball Molder Name Role Phone Alyson Maher MD Unavailable [phone] Will Roman MD Primary Care Provider Pablo Sullivan MD Unavailable [phone] Will Roman MD Unavailable [phone] Allergies No known active allergies Medications acetaminophen (TYLENOL) 500 MG tablet Take 1-2 tablets (500-1,000 mg total) by mouth 3 times daily (every 8 hours) as needed (pain). Active albuterol (PROVENTIL HFA; VENTOLIN HFA) 108 (90 Base) MCG/ACT inhalerIndicati ons:Acute bacterial bronchitis Inhale 1-2 puffs 4 times daily (every 6 hours) as needed for wheezing. 1 each 08/08/2024 Active meloxicam (MOBIC) 15 MG tablet 08/21/2024 Active budesonide (PULMICORT) 180 MCG/ACT inhalerIndicati ons:Influenza A Inhale 2 puffs 2 (two) times a day. Rinse mouth after use. Please instruct patient on use of this inhaler 3 each 1 08/31/2024 Active atorvastatin (LIPITOR) 80 MG tablet Take 1 tablet (80 mg total) by mouth daily. Active Active Problems Problem Noted Date Diagnosed Date CAD (coronary artery disease) 09/12/2024 Asthma 08/11/2024 Arthritis of knee 12/28/2022 Liver enzyme elevation 03/24/2022 Assessment & Plan (07/06/2022 9:26 PM EST): Pt with mild LE elevation, AST>ALT and mild indirect hyperbilirubinemia. Patient reports he continues to drink 40-60 beers per week. I counseled him again that this is extremely excessive and will lead to cirrhosis/liver failure and eventual . I advised him once again that he needs to speak to his PCP in order for assistance with alcohol abstinence. For comprehensiveness of work-up, will order hepatitis B and C testing as well as repeat liver enzymes/bilirubin in addition to FibroTest. Assessment & Plan (03/24/2022 9:47 PM EDT): AST trending up to 200s and ALT trending up to 80s over the past year. Mild hyperbilirubinemia 1.4, appears mostly indirect. Patient reports he drinks 40-60 beers per week. I counseled him this is extremely excessive and will lead to cirrhosis/liver failure and eventual . I advised him that he needs to speak to his PCP in order for assistance with alcohol abstinence. I have reached out to the PCP as well to inform her of this. For comprehensiveness of work-up, will order hepatitis B and C testing as well as repeat liver enzymes/bilirubin. Weight loss 03/24/2022 Assessment & Plan (07/06/2022 9:21 PM EST): Pt lost 25 lbs unintentionally earlier this year. Pt weight has been stable for last 3 months. Pt had EGD/Colonoscopy unremarkable for cause of weight loss. Will order CT scan chest/abdomen/pelvis to evaluate - pt has risk factors for malignancy, notably significant daily alcohol use. TSH also ordered to evaluate for thyroid dysfunction. Assessment & Plan (03/24/2022 9:51 PM EDT): Patient reports unintentional weight loss of about 25 pounds over 3 months. Endoscopy and colonoscopy have been ordered to evaluate. Risks/Benefits of procedure discussed and pt has been consented to proceed. Cardiology is evaluating for syncopal episode, preprocedure risk stratification sent to pt's Community Recreation Programmer (also advised pt to follow-up with Cardiology regarding elevated triglycerides/cholesterol). Dysphagia 03/24/2022 Assessment & Plan (07/06/2022 9:31 PM EST): Recent endoscopy without evident cause of dysphagia - no recurrence of previous Schatzki ring and esophageal biopsies negative for EoE (althouth biopsy findings suggestive of uncontrolled acid reflux). Pt notes has not been compliant with PPI - uncontrolled acid reflux may at least be contributing to dysphagia - advised pt to restart PPI and advised to take 30-60 minutes before a meal. Esophageal Manometry also ordered to further evaluate dysphagia. Assessment & Plan (03/24/2022 9:48 PM EDT): Patient noting intermittent dysphagia to pills. Patient has history of Schatzki ring. Patient will be undergoing endoscopy and colonoscopy to evaluate unintentional weight loss, will evaluate for causes of dysphagia during endoscopy. Mitral valve insufficiency 09/04/2020 Erectile dysfunction 10/17/2019 Assessment & Plan (10/17/2019 9:37 AM EDT): Rx for Tadalafil sent to [facility] for 90 days Cause appears to be idiopathic Epigastric pain 05/04/2013 Malaise 05/04/2013 Nausea 05/04/2013 Hypertriglyceridemia Assessment & Plan (10/17/2019 9:54 AM EDT): Repeat labs Continue current management Hyperlipidemia Assessment & Plan (10/17/2019 9:54 AM EDT): Repeat labs Continue current management Elevated ferritin Assessment & Plan (10/17/2019 9:54 AM EDT): Repeat labs for CBC, ferritin, iron, TIBC Fatigue Assessment & Plan (10/17/2019 9:54 AM EDT): Subjectively and objectively appears grossly improved with better management of lipids, triglycerides, and alcohol cessation We will reevaluate labs Follow-up routinely Resolved Problems Problem Noted Date Diagnosed Date Resolved Date Suspected COVID-19 virus infection 11/02/2019 12/14/2022 Assessment & Plan (11/12/2019 3:37 PM EDT): Negative test with concern for false negative. 1. Stay home from work, school, and away from other public places. If you must go out, avoid using any kind of public transportation, ridesharing, or taxis. 2. Monitor your symptoms carefully. If your symptoms get worse, call your healthcare provider immediately. 3. Get rest and stay hydrated. 4. If you have a medical appointment, call the healthcare provider ahead of time and tell them that you have or may have COVID-19. 5. For medical emergencies, call 911 and notify the dispatch personnel that you have or may have COVID-19. 6. Cover your cough and sneezes. 7. Wash your hands often with soap and water for at least 20 seconds or clean your hands with an alcohol-based hand arc air operator that contains at least 60% alcohol. 8. As much as possible, stay in a specific room and away from other people in your home. Also, you should use a separate bathroom, if available. If you need to be around other people in or outside of the home, wear a facemask. 9. Avoid sharing personal items with other people in your household, like dishes, towels, and bedding 10. Clean all surfaces that are touched often, like counters, tabletops, and doorknobs. Use household cleaning sprays or wipes according to the label instructions. Assessment & Plan (11/02/2019 12:09 PM EDT): COVID testing ordered Advised to leave work immediately and quarantine until negative results or if positive 14 days or 3 days after symptom free whichever is longer Provided hotline information if further requirements Counseled re quarantining and isolation from his family at home, mask wearing, glove use Rx renewal for albuterol Colon cancer screening 10/17/201912/14 Assessment & Plan (10/17/2019 9:55 AM EDT): Still due to have colonoscopy but will defer in view of COVID-19 Encounters Date Type Department Care Team Description 04/30/2025 Telephone [facility] [id number] [place] [address] Will Roman MD Referral from Last 3 Months Immunizations Immunization Administration Dates Next Due Covid-19 MRNA Vaccine - Pfizer 12+ (Purple Cap) 2021 Influenza (AFLURIA/FLUZONE) Inactivated/Split Quadrivalent with Preservative IM 05/14/2020,05/13/2020 Influenza Inactivated/Split Preservative Free IM 03/26/2022,04/25/2019 Influenza Virus Trivalent Split Vaccine (MDV) IM 03/26/2022 Influenza, Quadrivalent (FLU ARIX, AFLURIA, FLULAVAL, FLUZONE) Preservative Free IM 05/03/2021 Family History Medical History Relation Name Comments Alcohol abuse Father Father Heart attack Father Father Lung cancer Father Father Alcohol abuse Maternal Grandfather Charreed Colon cancer Maternal Grandfather Charley Cancer Maternal Grandmother No Known Problems Mother No Known Problems Sister Relation Name Status Comments Father Father Maternal Grandfather Karen Maternal Grandmother Mother Alive Sister Alive Social History Tobacco Use Types Packs/Day Years Used Date Smoking Tobacco: Never Smokeless Tobacco: Never Tobacco Cessation:Counseling Given: Not Answered Alcohol Use Standard Drinks/Week Comments Yes 40 [...] not to disclose 2022 9:10 AM EDT Last Filed Vital Signs Vital Sign Reading Time Taken Comments Blood Pressure 114/64 09/12/2024 1:25 PM EST Pulse 70 09/12/2024 1:25 PM EST Temperature 38.3 C (101 F) 08/08/2024 1:05 PM EST Respiratory Rate 18 09/12/2024 1:25 PM EST Oxygen Saturation 96% 09/12/2024 1:25 PM EST Inhaled Oxygen Concentration - - Weight 70.9 kg (156 lb 3.2 oz) 09/12/2024 1:25 P M EST Height 170.2 cm (5' 7 ) 09/12/2024 1:25 PM EST Body Mass Index 24.46 09/12/2024 1:25 PM EST Plan of Treatment Health Maintenance Due Date Last Done Comments HIV Screening 1981 DTaP/Tdap/Td Vaccines (1 - Tdap) 1987 Hepatitis B Vaccines (1 of 3 - 19+ 3-dose series) 1987 Pneumococcal Vaccines 50+ (1 of 2 - PCV) 1987 RSV Vaccine 50 years and old er and Patients (1 - Risk 50-74 years 1-dose series) 2018 Zoster (Shingles) Vaccine (1 of 2) 2018 Physical 11/06/2022 11/06/2021, 11/05/2020 Influenza Vaccine 02/09/2025 03/26/2022, , 05/03/2021, Additional history exists COVID-19 Vaccine (2024-2 6 season) 2025 2021, 11/07/2020, 10/17/2020 Colonoscopy 06/08/2025 06/08/2022, 03/13 (Previously Completed) Hepatitis C Virus Screening Completed 03/16/2019 Medical Devices Implanted Type Area Production Utility Worker Device Identifier Shelf Expiration Date Model / Serial / Lot [id number] [employer] R 40gm Grn - [id number] Implanted:Qty : 1 on 12/28/2022 by Dav Rodriguez MD at [facility] Cement Right: Knee [employer] 06/10/2027 [id number] / / [id number] Kim Stevenson Knee System Size 4 Right Cr Femur Cemented Implanted:Qty : 1 on 12/28/2022 at [facility] Joint Prosthesis Right: Knee Other 09/24/2027 [id number] / / [id number] [id number] Kim Stevenson Knee System Size 4 Right Primary Tibia Baseplate Cemented Implanted:Qty : 1 on 12/28/2022 at [facility] Joint Prosthesis Right: Knee Other [id number] 11/24/2027 [id number]-[id number] / / [id number] Kim Stevenson Knee System Retaining [place], Congruent Or Ultra Insert, Primary Tibia Baseplate Implanted:Qty : 1 on 12/28/2022 at [facility] Joint Prosthesis Right: Knee Other [id number] 10/07/2027 [id number] / / [id number] [id number] [employer]mn[employer] Ultra Tibial Insert Size 4x14mm Implanted:Qty : 1 on 12/28/2022 at [facility] Joint Prosthesis Right: Knee Other [id number] 02/03/2026 [id number] / / [id number] [id number] [employer] Stevenson Knee System 32mm X 8mm Implanted:Qty : 1 on 12/28/2022 at [facility] Joint Prosthesis Right: Knee Other [id number] 10/25/2027 [id number] / / [id number] Explanted Type Area Production Utility Worker Device Identifier Shelf Expiration Date Model / Serial / Lot Screw ( 1 Piece ) Explanted:Qty: 1 on 12/28/2022 at [facility] Screw Right: Knee UNKNOWN 0 / / Procedures Procedure Name Priority Date/Time Associated Diagnosis Comments COMPREHENSIVE METABOLIC PANEL Routine 03/01/2025 12:30 PM EDT Preop examination Coronary artery disease due to lipid rich plaque PREALBUMIN Routine 03/01/2025 12:30 PM EDT Preop examination Coronary artery disease due to lipid rich plaque COMPLETE BLOOD COUNT, WITH DIFFERENTIAL Routine 03/01/2025 12:30 PM EDT Preop examination Coronary artery disease due to lipid rich plaque HXCH HEPATITIS C AB Routine 03/16/2019 1 2:00 PM EDT from Last 3 Months or Most Recently Relevant to Health Maintenance Results * Complete Blood Count, with Differential (03/01/2025 12:30 PM EDT) White Blood Cell Count 5.7 3.8 - 10.8 Thousand/u L [facility] Red Blood Cell Count 4.63 4.20 - 5.80 Million/uL [facility] Hemoglobin 14.3 13.2 - 17.1 g/dL [facility] Hematocrit 42.7 38.5 - 50.0 % [facility] [place] MCV 92.2 80.0 - 100.0 fL [facility] [place] MCH 30.9 27.0 - 33.0 pg [facility] [place] MCHC 33.5 32.0 - 36.0 g/dL [facility] Comment: For adults, a slight decrease in the calculated MCHC value (in the range of 30 to 32 g/dL) is most likely not clinically significant; however, it should be interpreted with caution in correlation with other red cell parameters and the patient's clinical condition. RDW 12.8 11.0 - 15.0 % [facility] Platelet Count 233 140 - 400 Thousand/u L [facility] MPV 10.8 7.5 - 12.5 fL [facility] Abs Neutrophils Auto 2,736 1,500 - 7,800 cells/uL [facility] Abs Lymphocytes Auto 2,246 850 - 3,900 cells/uL [facility] [place] Abs Monocytes Auto 479 200 - 950 cells/uL [facility] [place] Abs Eosinophils Auto 171 15 - 500 cells/uL [facility] [place] Abs Basophils Auto 68 0 - 200 cells/uL [facility] [place] Neutrophils Auto 48 % [facility] [place] Lymphocytes Auto 39.4 % [facility] Monocytes Auto 8.4 % [facility] [place] Eosinophils Auto 3.0 % [facility] Basophils Auto 1.2 % [facility] Blood Blood specimen / Unknown 03/01/2025 12:30 PM EDT 03/01/2025 12:32 PM EDT Narrative [facility] - 03/02/2025 11:19 AM EDT REQ 2 OF 3 FASTING:NO PATIENT REFUSED SOME TESTING; PATIENT ENCOURAGED FASTING: NO Kevin Dominguez MD LAB BLOOD ORDERABLES Final Res ult Performing Organization Address [facility]/ZIP Co de Phone Number [facility] [address] [place] [address] * Prealbumin (03/01/2025 12:30 PM EDT) Prealbumin 28 21 - 43 mg/dL [facility] Blood Blood specimen / Unknown 03/01/2025 12:30 PM EDT 03/01/2025 12:32 PM EDT Narrative [facility] - 03/02/2025 11:19 AM EDT REQ 2 OF 3 FASTING:NO PATIENT REFUSED SOME TESTING; PATIENT ENCOURAGED FASTING: NO Kevin Dominguez MD LAB BLOOD ORDERABLES Final Res ult Performing Organization Address [facility] de Phone Number [facility] [address] [place] [phone] * (ABNORMAL) Comprehensive Metabolic Panel (03/01/2025 12:30 PM EDT) Glucose 99 65 - 139 mg/dL [facility] Comment: Non-fasting reference interval Blood Urea Nitrogen (BUN) 18 7 - 25 mg/dL [facility] Creatinine 0.84 0.70 - 1.30 mg/dL [facility] Creatinine w/ eGFR 102 > OR = 60 mL/min/1. 73m2 [facility] BUN/Creatinine Ratio SEE NOTE: 6 - 22 (calc) [facility] Comment: Not Reported: BUN and Creatinine are within reference range. Sodium 137 135 - 146 mmol/L [facility] Potassium 4.4 3.5 - 5.3 mmol/L [facility] Chloride 101 98 - 110 mmol/L [facility] CO2 27 20 - 32 mmol/L [facility] Calcium 9.5 8.6 - 10.3 mg/dL [facility] Protein, Total 7.2 6.1 - 8.1 g/dL [facility] Albumin 4.4 3.6 - 5.1 g/dL [facility] Globulin 2.8 1.9 - 3.7 g/dL (calc) [facility] Albumin/Globuli n Ratio 1.6 1.0 - 2.5 (calc) [facility] Bilirubin, Total 1.3(H) 0.2 - 1.2 mg/dL [facility] Alkaline Phosphatase 89 35 - 144 U/L [facility] Aspartate Aminotrans (AST) 29 10 - 35 U/L [facility] Alanine Aminotrans (ALT) 27 9 - 46 U/L [facility] Blood Blood specimen / Unknown 03/01/2025 12:30 PM EDT 03/01/2025 12:32 PM EDT [facility] - 03/02/2025 11:19 AM EDT REQ 2 OF 3 FASTING:NO PATIENT REFUSED SOME TESTING; PATIENT ENCOURAGED FASTING: NO Kevin Dominguez MD LAB BLOOD ORDERABLES Final Res ult [facility] [address] [place] [phone] * Hepatitis C Ab (03/16/2019 12:00 PM EDT) Hepatitis C Antibody NON-REACT [place] NON-REACT [place] [facility] CONVERSION Hepatitis C Antibody (s/co) 0.02 <1.00 [facility] CONVERSION Comment: HCV antibody was non-reactive. There is no laboratory evidence of HCV infection. In most cases, no further action is required. However, if recent HCV exposure is suspected, a test for HCV RNA (test code 53723) is suggested. For additional information please refer to http://education.[employer]/faq/TVC65r9 (This link is being provided for informational/ educational purposes only.) Test performed at [facility] [address] [place] [address],[facility] [place] [address] Director: CHRIS CONKLIN MD 03/16/2019 12:0 0 PM EDT 03/16/2019 12:00 PM EDT Will Roman MD HX LAB Final Result MEDITECH CONVERSION from Last 3 Months or Most Recently Relevant to Health Maintenance Insurance [id number] [place] [address] - [facility] [id number] [place] [address] - [facility] WORKER'S COMP Advance Directives * Full Code (Latest Code Status on File) Date Activated Date Inactivated Comments 12/28/2022 10:22 AM Care Teams Wax Ball Molder Relationship Specialty Start Date End Date Will Roman MD PCP - General Medicine Hospitalist 05/26/19 Will Roman MD [address] [address] PCP - [place] [employer] Attributed 07/12/24 Alyson Maher MD Hematology Oncology 04/04/19 Pablo Sullivan MD Cardiovascular Disease 09/12/24
--- OUTSIDE RECORDS SUMMARY | 2025-05-04 08:01 | XMS_ITS | Encounter Summary ---
Author Organization [facility] Address [address] [place] [address] Care Team Providers Care Segmental Wall Installer Name Role Phone Alyson Maher MD Unavailable [phone] Will Roman MD Primary Care Provider [phone] Will Roman MD Unavailable [phone] Pablo Sullivan MD Unavailable [phone] Will Roman MD Unavailable [phone] Encounter Details Date Type Department Care Team (Late st Contact Info) Description 06/30/[address] [facility] [address] [facility] [address] [place] [phone] Manuelito Lemos PA-C [address] [place] [id number] Encounter for laboratory testing for COVID-19 virus Social History Tobacco Use Types Packs/Day Years [...] or suspected to have Coronavirus / COVID-19? Unable to assess 06/26/2020 12:38 PM ES T documented as of this encounter Plan of Treatment Not on file documented as of this encounter Procedures Procedure Name Priority Date/Time Associated Diagnosis Comments COVID-19 (SARS-COV-2) - [facility] Routine 06/30/2020 11:07 AM EST Encounter for laboratory testing for COVID-19 virus [ICD-10-CM] documented in this encounter Results * COVID-19 (SARS-COV-2) (SEMA4) (06/30/2020 11:07 AM EST) COVID-19 RT-PCR NOT-DETEC KATARZYNA Not-Detec katarzyna 07/02/2020 9:35 PM EST [facility] Comment:Interpretation: The viral RNA was not detected, making the COVID-19 diagnosis less likely. Clinical correlation is highly recommended.Final report signed by Jessie Wynn, Ph.D., Laboratory DirectorTests performed at [facility] Microbiology Nasopharyngeal swab / Unknown 06/30/2020 11:07 AM EST 06/30/2020 11:07 AM EST Narrative KITA JE Marisel WEAVER - 07/02/2020 9:35 PM EST Performed by [facility] [address] [place], [place] [id number], CLIA# [id number] and [place] License# [id number] Manuelito Lemos PA-C MICROBIOLOGY - GENERAL OR DERABLES Final Result [facility] documented in this encounter Visit Diagnoses Diagnosis Encounter for laboratory testing for COVID-19 virus documented in this encounter Care Teams Segmental Wall Installer Relationship Specialty Start Date End Date Will Roman MD PCP - General Medicine Hospitalist 05/26/19 Will Roman MD [address] [place] [address] PCP - [place] [employer] Attributed 02/10/20 08/11/21 Will Roman MD [address] [address] PCP - [place] [employer] Attributed 07/12/24 Alyson Maher MD Hematology Oncology 04/04/19 Pablo Sullivan MD [address] [address] Cardiovascular Disease 09/12/24 documented as of this encounter
--- OUTSIDE RECORDS SUMMARY | 2025-05-04 08:01 | XMS_ITS | Encounter Summary ---
Author Organization [facility] Address [address] [place] [phone] Care Team Providers Care Animal Ride Attendant Name Role Phone Will Roman MD Primary Care Provider Encounter Details Date Type Department Care Team (Late st Contact Info) Description 07/20/2019 Scanned Document [facility] Health Information Management [address] [place] [id number] External, Provider Social History Tobacco Use Types Packs/Day Years Used Date Smoking Tobacco: Never Smokeless Tobacco: Never Alcohol Use Standard Drinks/Week Comments Yes 42 (1 standard drink = 0.6 oz pu re alcohol) past vodka, stopped 12/2018 PHQ-2 Answer Date Recorded PHQ-2 Score 0 07/11/2019 Sex and Gender Information Value Date Recorded Sex Assigned at Not on file Legal Sex Male 5:41 PM EDT Gender Identity Not on file Sexual Orientation Not on file documented as of this encounter Plan of Treatment Not on file documented as of this encounter Visit Diagnoses Not on filedocumented in this encounter Additional Health Concerns Assessment Noted Time PHQ-9 Depression Total Score: 0 07/11/20 19 2:32 PM EST documented as of this encounter Care Teams Animal Ride Attendant Relationship Specialty Start Date End Date Will Roman MD [address] [phone] PCP - General Family Medicine 03/17/19 documented as of this encounter
--- OUTSIDE RECORDS SUMMARY | 2025-05-04 08:01 | XMS_ITS | Encounter Summary ---
Author Organization [facility] Address [address] [place] [address] Care Team Providers Care Customs Import Specialist Name Role Phone Alyson Maher MD Unavailable [phone] Will Roman MD Primary Care Provider Pablo Sullivan MD Unavailable [phone] Will Roman MD Unavailable Encounter Details Date Type Department Care Team (Late st Contact Info) Description 08/29/2021 Scanned Document [facility] [address] [place] [id number] Pablo Farah, LOIDA [address] [place], [place] [id number] Social History Tobacco Use Types Packs/Day Years [...] on filedocumented in this encounter Care Teams Customs Import Specialist Relationship Specialty Start Date End Date Will Roman MD PCP - General Medicine Hospitalist 05/26/19 Will Roman MD [address] [place] [address] PCP - [place] Commercial Attributed 07/12/24 Alyson Maher MD Hematology Oncology 04/04/19 Pablo Sullivan MD Cardiovascular Disease 09/12/24 documented as of this encounter
--- OUTSIDE RECORDS SUMMARY | 2025-05-04 08:01 | XMS_ITS | Encounter Summary ---
Author Organization Formerly [facility] Address [address] [place] [address] Care Team Providers Care Tank House Operator Name Role Phone Alyson Maher MD Unavailable [phone] Will Roman MD Primary Care Provider [phone] Pablo Sullivan MD Unavailable [phone] Will Roman MD Unavailable [phone] Reason for Referral * Podiatry (Routine) - Authorized Specialty Diagnoses / Procedures Referred By Contac t Referred To Contact Podiatry Diagnoses Right ankle pain, unspecified chronicity Toe pain, left Will Roman MD [address] [place] [address] Phone: tel: fax: Referral ID Status Reason Start Date Expiration Date V isits Requested Visits Authorized [id number] Authorized Consult 04/30/2025 05/01/2026 1 1 Comments [facility] [place] pod[place]ry Fx: [phone] Reason for Visit * Reason Onset Date Comments Referral 04/30/2025 Encounter Details Date Type Department Care Team (Late st Contact Info) Description 04/30/[address] [address] Will Roman MD [address] [place], [place] [id number] Referral Social History Tobacco Use Types Packs/Day Years [...] AM EDT documented as of this encounter Miscellaneous Notes * Telephone Encounter - Sony Dunn LPN - 04/30/2025 5:17 PM EDT Referral placed and faxed to provided fax number and patient advised * Telephone Encounter - Sony Dunn LPN - 04/30/2025 4:05 PM EDT Spoke with patient. States ~2 years ago they were seen by [facility] [employer] clerk for a left toe fx and also right ankle pain. Patient was told there was nothing to do for the fx and that they needed to purchase a cushion of some sort for the ankle as they are flat footed and that is what was causing pain in their ankle. Patient is still experiencing pain in both the right ankle and left toe which is causing gait variability and discomfort walking/hiking. Patient is on their feet all day for work and would like a second opinion. Patient found provider close to their work that is easier to go to if we are agreeable. Please advise if agreeable to refer to patient preferred [employer] clerk documented in this encounter Plan of Treatment Scheduled Referrals Name Type Priority Associated Diagnoses Orde r Schedule Amb referral to Podiatry Outpatient Referral Routine Right ankle pain, unspecified chronicity Toe pain, left Ordered: 04/30/2025 documented as of this encounter Visit Diagnoses Diagnosis Right ankle pain, unspecified chronicity- Primary Toe pain, left Pain in soft tissues of limb documented in this encounter Care Teams Tank House Operator Relationship Specialty Start Date End Date Will Roman MD PCP - General Medicine Hospitalist 05/26/19 Will Roman MD [address] [address] PCP - [place] [employer] Attributed 07/12/24 Alyson Maher MD Hematology Oncology 04/04/19 Pablo Sullivan MD Cardiovascular Disease 09/12/24 documented as of this encounter
--- OUTSIDE RECORDS SUMMARY | 2025-05-04 08:01 | XMS_ITS | Clinical Summary ---
Author Organization [facility] Address [address] [place] [address] Care Team Providers Care Paving Rammer Name Role Phone Will Roman MD Primary Care Provider [phone] Allergies No known active allergies Medications multivitamin (MULTIVITAMIN) tablet Take 1 tablet by mouth daily. Active folic acid (FOLVITE) 400 MCG tablet Take 400 mcg by mouth daily. Active magnesium oxide 500 mg Cap Take 1 tablet by mouth daily. Active cholecalciferol , vitamin D3, (VITAMIN D3) 25 mcg (1,000 unit) capsule Take 3,000 Units by mouth daily. Active aspirin 81 MG chewable tablet Take 1 capsule by mouth daily before breakfast. Active atorvastatin (LIPITOR) 80 MG tablet Take 80 mg by mouth daily. Active LORazepam (ATIVAN) 0.5 mg tablet 1 tablet 30 min prior to MRI, 2nd tablet at time of MRI if needed. 2 tablet 9 Active Additional Information Patient not taking.Reported on 08/11/2019 fenofibrate (TRICOR) 145 mg tablet Take 145 mg by mouth daily. 0 Active VASCEPA 1 gram capsule Take 2 capsules by mouth 2 (two) times daily. 0 Active Active Problems Problem Noted Date Diagnosed Date Elevated ferritin 06/19/2019 Abnormal laboratory test result 03/29/2019 Family History Medical History Relation Name Comments Heart attack Father Lung cancer Father Alcohol abuse Maternal Grandfather Dementia Maternal Grandfather Relation Name Status Comments Father Maternal Grandfather Social History Tobacco Use Types Packs/Day Years [...] on file Sexual Orientation Not on file Last Filed Vital Signs Vital Sign Reading Time Taken Comments Blood Pressure 110/62 08/11/2019 8:14 AM EST Pulse 75 08/11/2019 8:14 AM EST Temperature 36.9 C (98.4 F) 08/11/2019 8:14 AM EST Respiratory Rate 20 08/11/2019 8:14 AM EST Oxygen Saturation 97% 08/11/2019 8:14 AM EST Inhaled Oxygen Concentration - - Weight 68.6 kg (151 lb 3.8 oz) 08/11/2019 8:14 A M EST Height 162.6 cm (5' 4 ) 03/31/2019 12:16 PM EDT Body Mass Index 25.96 03/31/2019 12:16 PM EDT Plan of Treatment Health Maintenance Due Date Last Done Comments HIV screening 1981 Tetanus adult (Td q 10,TDAP once) 1988 Colon cancer screening, Colonoscopy 2013 Pneumococcal Vaccine (50+ years) (1 of 1 - PCV) 2018 Shingles vaccine (Shingrix) (1 of 2 - Shingrix (RZV) 2 Dose Standard Series) 2018 Diabetes screening 08/11/2022 08/11/2019, 1 , 06/19/2019, Additional history exists Lipid disorder screening 08/11/2024 020, 07/11/2019, 07/11/2019, Additional history exists Influenza vaccine 02/09/2025 03/26/2022, , 05/13/2020, Additional history exists Covid-19 vaccine series ( season) 2025 2021, 11/07/2020, 10/17/2020 RSV Immunization (1 - 1-dose 75+ series) 2043 Hepatitis C screening Completed 07/11/2019 Meningococcal B Vaccine Aged Out No l onger eligible based on patient's age to complete this topic Meningococcal Vaccine Aged Out No reema onesimo eligible based on patient's age to complete this topic Procedures Procedure Name Priority Date/Time Associated Diagnosis Comments LIPID PANEL Routine 08/11/2019 8:49 AM EST Elevated cholesterol with elevated triglycerides COMPREHENSIVE METABOLIC PANEL Routine 08/11/2019 8:15 AM EST Anemia, unspecified type Weight loss from Last 3 Months or Most Recently Relevant to Health Maintenance Results * Lipid panel (CRL) (08/11/2019 8:49 AM EST) Cholesterol 137 See Comment mg/dL 08/11/2019 2:04 PM [facility] Comment: Total Cholesterol (mg/dL) Adults (>18 years) Children (<18 years) Desirable <200 <170 Borderline-High 200-239 170-199 High >=240 >=200 HDL 42 >=40 mg/dL 08/11/2019 2:04 PM [facility] Triglycerides 122 See Comment mg/dL 08/11/2019 2:04 PM [facility] Comment: Triglycerides (mg/dL) Adults (>18 years) Children (<18 years) Desirable <150 Not Established Borderline-High 150-199 Not Established High 200-499 Not Established Chol/HDL Ratio 3.3 0.0 - 5.0 08/11/2019 2:04 PM [facility] LDL Calculated 71 See Comment mg/dL 08/11/2019 2:04 PM EST [facility] Comment: LDL Cholesterol (mg/dL) Adults (>18 years) Children (<18 years) Desirable <100 <110 Above Desirable 100-129 Not Established Borderline-High 130-159 110-129 High 160-189 >=130 Very High >=190 Not Established Blood Venipuncture / Unknown 08/11/2019 8:49 AM EST 08/11/2019 8:49 AM EST Alyson Maher MD LAB BLOOD ORDERABLES Final R esult Performing Organization Address City/State/[facility] Co de Phone Number [facility] [address] [place] [address] * (ABNORMAL) Comprehensive metabolic panel (08/11/2019 8:15 AM EST) Sodium 140 135 - 145 mmol/L 08/11/2019 8:44 AM EST [facility] Potassium 3.7 3.3 - 5.0 mmol/L 08/11/2019 8:44 AM EST [facility] Chloride 105 96 - 106 mmol/L 08/11/2019 8:44 AM EST [facility] CO2 26 22 - 30 mmol/L 08/11/2019 8:44 AM EST [facility] Anion Gap 9 7 - 17 08/11/2019 8:44 AM EST [facility] Glucose 102(H) 70 - 100 mg/dL 08/11/2019 8:44 AM EST [facility] BUN 13 8 - 18 mg/dL 08/11/2019 8:44 AM EST [facility] Creatinine 0.91 0.50 - 1.20 mg/dL 08/11/2019 8:44 AM [facility] Calcium 9.1 8.8 - 10.2 mg/dL 08/11/2019 8:44 AM [facility] BUN/Creatinine Ratio 14.3 10.0 - 20.0 08/11/2019 8:44 AM [facility] Total Protein 6.8 6.0 - 8.3 g/dL 08/11/2019 8:44 AM [facility] Albumin 3.5 3.5 - 5.0 g/dL 08/11/2019 8:44 AM [facility] Total Bilirubin 0.8 <1.20 mg/dL 08/11/2019 8:44 AM [facility] Alkaline Phosphatase 60 30 - 130 U/L 08/11/2019 8:44 AM [facility] Alanine Aminotransferase (ALT) 29 0 - 34 U/L 08/11/2019 8:44 AM [facility] Aspartate Aminotransferase (AST) 30 0 - 34 U/L 08/11/2019 8:44 AM [facility] Globulin 3.3 g/dL 08/11/2019 8:44 AM [facility] A/G Ratio 1.1 1.0 - 2.2 08/11/2019 8:44 AM [facility] AST/ALT Ratio 1.0 0.3 - 4.9 08/11/2019 8:44 AM [facility] eGFR (Afr Amer) >60 >60 mL/min/1. 73m2 08/11/2019 8:44 AM [facility] Comment: Values under 60mL/min/1.73m2 may indicate CKD if noted for more than 3 months. eGFR is only valid if creatinine is at steady state. eGFR (NON -Azerbaijani) >60 >60 mL/min/1. 73m2 08/11/2019 8:44 AM [facility] Comment: Values under 60mL/min/1.73m2 may indicate CKD if noted for more than 3 months. eGFR is only valid if creatinine is at steady state. Blood Venipuncture / Unknown 08/11/2019 8:15 AM EST 08/11/2019 8:15 AM EST us Alyson Maher MD LAB BLOOD ORDERABLES Final R esult [facility] [address] [place] [address], [facility] [phone] from Last 3 Months or Most Recently Relevant to Health Maintenance Insurance BS BS BS Care Teams Paving Rammer Relationship Specialty Start Date End Date Will Roman MD [address] [facility] [address] [place] [phone] PCP - General Family Medicine 03/17/19
--- OUTSIDE RECORDS SUMMARY | 2025-05-04 08:01 | XMS_ITS | Encounter Summary ---
Author Organization [facility] Address [address] [place] [address] Care Team Providers Care Potato Chip Fryer Name Role Phone Alyson Maher MD Unavailable [phone] Will Roman MD Primary Care Provider Will Roman MD Unavailable aPblo Sullivan MD Unavailable [phone] Will Roman MD Unavailable Reason for Visit * Reason Comments Medication Refill Encounter Details Date Type Department Care Team (Late st Contact Info) Description 11/05/2019 Refill [facility] Heart & Vascular [place] at [address] [phone] Tucker Murray MD [address] [place] [address] Medication Refill Social History Tobacco Use Types Packs/Day Years [...] have Coronavirus / COVID-19? Unable to assess 11/06/2019 9:25 AM EDT documented as of this encounter Plan of Treatment Not on file documented as of this encounter Visit Diagnoses Diagnosis Familial hypercholesterolemia documented in this encounter Care Teams Potato Chip Fryer Relationship Specialty Start Date End Date Will Roman MD PCP - General Medicine Hospitalist 05/26/19 Will Roman MD [address] [address] PCP - [place] [employer] Attributed 02/10/20 08/11/21 Will Roman MD [address] [address] PCP - [place] [employer] Attributed 07/12/24 Alyson Maher MD Hematology Oncology 04/04/19 Pablo Sullivan MD [address] [address] Cardiovascular Disease 09/12/24 documented as of this encounter
--- OUTSIDE RECORDS SUMMARY | 2025-05-04 08:01 | XMS_ITS | Encounter Summary ---
Author Organization [facility] Address [address] [place] [address] Care Team Providers Care Porcelain Enamel Repairer Name Role Phone Alyson Maher MD Unavailable Will Roman MD Primary Care Provider Pablo Sullivan MD Unavailable [phone] Will Roman MD Unavailable [phone] Reason for Visit * Reason Comments Call Patient Advice Only Encounter Details Date Type Department Care Team (Late st Contact Info) Description 03/02/[address] [address] Will Roman MD [address] [address] Call Patient; Advice Only Social History Tobacco Use Types Packs/Day Years [...] encounter Miscellaneous Notes * Telephone Encounter - Alia Anaya LPN - 03/02/2023 10:24 AM EDT Spoke with patient there are notes to GI as well from November that they were going to contact the patient in regards to this and no further documenting is noted. Patient is going to follow up with the insurance company to see exactly what is needed and get back to the appropriate office. We did not refer to GI it appears this is a regular test done for him per GI documented in this encounter Plan of Treatment Not on file documented as of this encounter Visit Diagnoses Not on filedocumented in this encounter Care Teams Porcelain Enamel Repairer Relationship Specialty Start Date End Date Will Roman MD PCP - General Medicine Hospitalist 05/26/19 Will Roman MD [address] [place] [address] PCP - [place] [employer] Attributed 07/12/24 Alyson Maher MD Hematology Oncology 04/04/19 Pablo Sullivan MD Cardiovascular Disease 09/12/24 documented as of this encounter
--- OUTSIDE RECORDS SUMMARY | 2025-05-04 08:01 | XMS_ITS | Encounter Summary ---
Author Organization [facility] Address [address] [place] [address] Care Team Providers Care Director Of Entertainment Name Role Phone Will Roman MD Primary Care Provider Encounter Details Date Type Department Care Team (Late st Contact Info) Description 03/30/2019 Scanned Document [facility] Health Information Management [address] [place] [id number] External, Provider Social History Tobacco Use Types Packs/Day Years Used Date Smoking Tobacco: Never Assessed PHQ-2 Answer Date Recorded PHQ-2 Score 4 03/31/2019 Sex and Gender Information Value Date Recorded Sex Assigned at Not on file Legal Sex Male 5:41 PM EDT Gender Identity Not on file Sexual Orientation Not on file documented as of this encounter Plan of Treatment Not on file documented as of this encounter Procedures Procedure Name Priority Date/Time Associated Diagnosis Comments CT RESULT SCAN Routine 03/30/2019 documented in this encounter Results * CT Result Scan (03/30/2019) us Provider External IMG SCAN REPORTS Final Result documented in this encounter Visit Diagnoses Not on filedocumented in this encounter Care Teams Director Of Entertainment Relationship Specialty Start Date End Date Will Roman MD [address] [phone] PCP - General Family Medicine 03/17/19 documented as of this encounter
--- OUTSIDE RECORDS SUMMARY | 2025-05-04 08:01 | XMS_ITS | Encounter Summary ---
Author Organization [facility] Address [address] [place] [address] Care Team Providers Care Dry Room Attendant Name Role Phone Alyson Maher MD Unavailable [phone] Will Roman MD Primary Care Provider Will Roman MD Unavailable [phone] Pablo Sullivan MD Unavailable Will Roman MD Unavailable Encounter Details Date Type Department Care Team (Late st Contact Info) Description 08/29/2019 Scanned Document [facility] [place] [facility] [address] [place] [phone] Tucker Murray MD [address] [place] [address] Social History Tobacco Use Types Packs/Day Years [...] on filedocumented in this encounter Care Teams Dry Room Attendant Relationship Specialty Start Date End Date Will Roman MD PCP - General Medicine Hospitalist 05/26/19 Will Roman MD [address] [address] PCP - [place] [employer] Attributed 02/10/20 08/11/21 Will Roman MD [address] [address] PCP - [place] [employer] Attributed 07/12/24 Alyson Maher MD Hematology Oncology 04/04/19 Pablo Sullivan MD [address] [address] Cardiovascular Disease 09/12/24 documented as of this encounter
--- OUTSIDE RECORDS SUMMARY | 2025-05-04 08:01 | XMS_ITS | Encounter Summary ---
Author Organization [facility] Address [address] [place] [address] Care Team Providers Care Pigs Feet Cleaner Name Role Phone Alyson Maher MD Unavailable [phone] Will Roman MD Primary Care Provider Will Roman MD Unavailable [phone] Pablo Sullivan MD Unavailable [phone] Will Roman MD Unavailable [phone] Reason for Visit * Reason Comments Medication Refill Encounter Details Date Type Department Care Team (Late st Contact Info) Description 06/25/2020 Refill [facility] Heart & Vascular [place] at [address] [phone] Tucker Murray MD [address] [place] [address] Medication Refill Social History Tobacco Use Types [...] hypercholesterolemia documented in this encounter Care Teams Pigs Feet Cleaner Relationship Specialty Start Date End Date Will Roman MD PCP - General Medicine Hospitalist 05/26/19 Will Roman MD [address] [address] PCP - [place] [employer] Attributed 02/10/20 08/11/21 Will Roman MD [address] [address] PCP - [place] [employer] Attributed 07/12/24 Alyson Maher MD Hematology Oncology 04/04/19 Pablo Sullivan MD [address] [address] Cardiovascular Disease 09/12/24 documented as of this encounter
--- OUTSIDE RECORDS SUMMARY | 2025-05-04 08:01 | XMS_ITS | Clinical Summary ---
Author Organization [facility] [address] [facility] Address [address] [place] [address] Phone Care Team Providers Care Digitizer Operator Name Role Phone Will Roman Primary Care Provider [phone] Allergies Active Allergy Reactions Criticality Noted Date Comments Latex Other Medium 08/23/2015 Reaction unknown Nsaids (Non-Steroidal Anti-Inflammatory Drug) 09/11/2015 CHRONIC LIVER DISEASE Medications ezetimibe (ZETIA) 10 mg tablet Take 1 tablet (10 mg total) by mouth 1 (one) time each day. 90 tablet 2 08/31/2024 Active albuterol HFA (PROAIR HFA ; PROVENTIL HFA ; VENTOLIN HFA) 90 mcg/actuation inhaler Inhale 1-2 puffs by mouth every 6 hours as needed. 08/08/2024 Active aspirin 81 mg chewable tablet Chew 1 tablet (81 mg total) daily. Active budesonide (PULMICORT) 180 mcg/actuation inhaler Inhale 2 puffs by mouth 2 times daily. 08/31/2024 Active cholecalciferol (VITAMIN D-3) 25 mcg (1,000 unit) capsule Take 3 capsules (3,000 Units total) by mouth daily. Active folic acid (FOLVITE) 400 mcg tablet Take 1 tablet (400 mcg total) by mouth daily. Active magnesium oxide 500 mg capsule Take 1 tablet by mouth daily. Active multivitamin tablet Take 1 tablet by mouth daily. Active predniSONE (DELTASONE) 50 mg tablet Take 1 tablet (50 mg total) by mouth 1 (one) time each day. with food 08/08/2024 Active atorvastatin (LIPITOR) 80 mg tabletIndicatio ns:Atherosclero tic heart disease of [place] coronary artery without angina pectoris TAKE 1 TABLET BY MOUTH EVERY DAY 90 tablet 3 10/09/2024 Active Active Problems Problem Noted Date Diagnosed Date ASHD (arteriosclerotic heart disease) 05/03/2025 Pure hypercholesterolemia 05/03/2025 Encounters Date Type Department Care Team Description 05/03/2025 2:30 PM EDT Office Visit Cardiology - [address] [place] [address] Pablo Sullivan MD ASHD (arteriosclerotic heart disease) (Primary Dx); Pure hypercholesterolemia from Last 3 Months Immunizations Immunization Administration Dates Next Due Pfizer SARS-CoV-2 COVID-19, mRNA, LNP-S, preservative free 2021 Surgical History Surgery Date Site/Laterality Comments LUNG SURGERY PROCEDURE:LUNG SURGERY;COMMENT:benign lung tumor removal. BRONCHOSCOPY PROCEDURE:BRONCHOSCOPY KNEE SURGERY Right PROCEDURE:KNEE SURGERY;COMMENT:acl tear repair X 2 KNEE SURGERY Left PROCEDURE:KNEE SURGERY;COMMENT:MENISCUS VASECTOMY PROCEDURE:VASECTOMY TOTAL HIP ARTHROPLASTY 09/16/2015 Left PROCEDURE:TOTAL HIP ARTHROPLASTY;COMMENT:Procedure: REPLACEMENT TOTAL HIP WITH RESURFACING IMPLANTS - WATER VIEW; Surgeon: Dav Rodriguez MD; Location: [facility] ([facility]); Service: Orthopedics; Laterality: Left; Medical History Medical History Date Comments Asthma DX:Asthma Osteoarthritis DX:Osteoarthriti s Pneumonia DX:Pneumonia Lung tumor (benign) DX:Lung tumo r (benign) Alcohol dependence (CMS/HCC V24, CMS/HCC V28) DX:Alcohol dependence ([facility]) Diplopia DX:Diplopia;COMM ENT:S/P R ORBITAL FRACTURE Hyperlipidemia DX:Hyperlipidemi a Glaucoma DX:Glaucoma;COMM ENT:BORDERLINE Social History Tobacco Use Types Packs/Day Years Used Date Smoking Tobacco: Never Smokeless Tobacco: Never Alcohol Use Standard Drinks/Week Comments Yes 28 (1 standard drink = 0.6 oz pu re alcohol) Sex and Gender Information Value Date Recorded Sex Assigned at Not on file Legal Sex Male 7:29 AM EST Gender Identity Not on file Sexual Orientation Not on file Obstetrics History Last Filed Vital Signs Vital Sign Reading [...] Mass Index 25.18 05/03/2025 2:56 PM EDT Plan of Treatment Upcoming Encounters Date Type Department Care Team (Late st Contact Info) Description 05/03/2026 2:30 PM EDT Office Visit Cardiology - [place] [address] [facility] [address] [place] [address] Pablo Sullivan MD 110 [facility] [address] [place] [address] Health Maintenance Due Date Last Done Comments Colorectal Cancer Screening: Colonoscopy 1968 DTaP,Tdap,and Td Vaccines (1 - Tdap) 1987 Hepatitis B Vaccines (1 of 3 - 19+ 3-dose series) 1987 Pneumococcal Vaccine: 50+ Years (1 of 2 - PCV) 1987 RSV Immunization Adult Patients (1 - Risk 50-74 years 1-dose series) 2018 Zoster Vaccines (1 of 2) 2018 HIV Screening 06/18/2022 Hepatitis C Screening 06/18/2022 Social Influencers of Health Screening 06/18/2022 Depression Screening 07/12/2024 Hypertension/CHF/CAD Annual BMP Blood Test 09/13/2024 08/11/2019 COVID-19 Vaccine ( season) 2025 2021, 11/07/2020, 10/17/2020 Influenza Vaccine (#1) 2025 2, 05/03/2021, 05/14/2020, Additional history exists Cholesterol Screening (Lipid Panel) 03/01/2030 03/01/2025, 03/01/2025, 04/13/2024, Additional history exists HIB Vaccines Aged Out No longer eligi ble based on patient's age to complete this topic HPV Vaccines Aged Out No longer eligi ble based on patient's age to complete this topic Hepatitis A Vaccines Aged Out No long er eligible based on patient's age to complete this topic IPV Vaccines Aged Out No longer eligi ble based on patient's age to complete this topic MMR Vaccines Aged Out No longer eligi ble based on patient's age to complete this topic Meningococcal ACWY Vaccine Aged Out N o longer eligible based on patient's age to complete this topic Meningococcal B Vaccine Aged Out No l onger eligible based on patient's age to complete this topic RSV Immunization Patients Under 20 months Aged Out No longer eligible based on patient's age to complete this topic Varicella Vaccines Aged Out No longer eligible based on patient's age to complete this topic Procedures Procedure Name Priority Date/Time Associated Diagnosis Comments ECG 12-LEAD Routine 05/03/2025 4:38 PM EDT ASHD (arteriosclerotic heart disease) Pure hypercholesterolemia LIPID PANEL Routine 03/01/2025 12:27 PM EDT from Last 3 Months Results * ECG 12 lead (05/03/2025 4:38 PM EDT) Impressions Pablo Sullivan MD - 05/03/2025 4:38 PM EDT Sinus bradycardia with first-degree AV block Minimal voltage criteria for LVH Pablo Sullivan MD ECG ORDERABLES Final Result * (ABNORMAL) Lipid panel (03/01/2025 12:27 PM EDT) Cholesterol Total 204(H) <200 mg/dL [facility] HDL Cholesterol 47 > OR = 40 mg/dL [facility] Triglycerides 434(H) <150 mg/dL [facility] Comment: If a non-fasting specimen was collected, consider repeat triglyceride testing on a fasting specimen if clinically indicated. Kendra et al. J. of Clin. Lipidol. 2015;9:129-169. LDL Cholesterol mg/dL (calc) [facility] Comment: LDL cholesterol not calculated. Triglyceride levels greater than 400 mg/dL invalidate calculated LDL results. Reference range: <100 Desirable range <100 mg/dL for primary prevention; <70 mg/dL for patients with CHD or diabetic patients with > or = 2 CHD risk factors. LDL-C is now calculated using the Carmelina calculation, which is a validated novel method providing better accuracy than the Friedewald equation in the estimation of LDL-C. Luis ROSARIO et al. NAIDA. 2013;310(19): 3331-0153 (http://education.kenxus/faq/WVO581) Chol/HDLC Ratio 4.3 <5.0 (calc) [facility] Non HDL Cholesterol 157(H) <130 mg/dL (calc) [facility] Comment: For patients with diabetes plus 1 major ASCVD risk factor, treating to a non-HDL-C goal of <100 mg/dL (LDL-C of <70 mg/dL) is considered a therapeutic option. 03/01/2025 12:2 7 PM EDT 03/01/2025 12:28 PM EDT Narrative [facility] - 03/02/2025 10:06 AM EDT REQ 1 OF 3 FASTING:NO FASTING: NO us Pablo Sullivan MD LAB BLOOD ORDERABLES Final Res ult [facility] [address] [place] [address] from Last 3 Months Insurance [facility] Care Teams Digitizer Operator Relationship Specialty Start Date End Date Will Roman [address] [place] [address] ASHVIN GONZALEZ PCP - General Family Medicine 09/04/21
--- OUTSIDE RECORDS SUMMARY | 2025-05-04 08:01 | XMS_ITS | Encounter Summary ---
Author Organization [facility] Address [address] [place] [address] Care Team Providers Care Shop Tech Name Role Phone Alyson Maher MD Unavailable [phone] Will Roman MD Primary Care Provider [phone] Pablo Sullivan MD Unavailable [phone] Will Roman MD Unavailable Encounter Details Date Type Department Care Team (Late st Contact Info) Description 09/14/2024 Scanned Document [facility] Primary Care [address] [place], [place] [phone] Will Roman MD 80 [facility] [address] [place], [place] Social History Tobacco Use Types Packs/Day Years [...] on filedocumented in this encounter Care Teams Shop Tech Relationship Specialty Start Date End Date Will Roman MD PCP - General Medicine Hospitalist 05/26/19 Will Roman MD [address] [place] [address] PCP - [place] Commercial Attributed 07/12/24 Alyson Maher MD Hematology Oncology 04/04/19 Pablo Sullivan MD Cardiovascular Disease 09/12/24 documented as of this encounter
--- OUTSIDE RECORDS SUMMARY | 2025-05-04 08:01 | XMS_ITS | Encounter Summary ---
Author Organization [facility] Address [address] [place] [address] Care Team Providers Care Heel Dipper Name Role Phone Will Roman MD Primary Care Provider [phone] Encounter Details Date Type Department Care Team (Latest Contact Info) Description 04/07/2019 Transcribed Orders [facility] [address] [place] [address] Alyson Maher MD [address] [place] [address] Abnormal laboratory test result (Primary Dx) Social History Tobacco Use Types Packs/Day Years Used Date Smoking Tobacco: Never Smokeless Tobacco: Never Alcohol Use Standard Drinks/Week Comments Yes 21 (1 standard drink = 0.6 oz pu re alcohol) past vodka, stopped 12/2018 PHQ-2 Answer Date Recorded PHQ-2 Score 4 03/31/2019 Sex and Gender Information Value Date Recorded Sex Assigned at Not on file Legal Sex Male 5:41 PM EDT Gender Identity Not on file Sexual Orientation Not on file documented as of this encounter Plan of Treatment Not on file documented as of this encounter Visit Diagnoses Diagnosis Abnormal laboratory test result- Primary Other abnormal clinical finding documented in this encounter Additional Health Concerns Assessment Noted Time PHQ-9 Depression Total Score: 11 019 12:23 PM EDT documented as of this encounter Care Teams Heel Dipper Relationship Specialty Start Date End Date Will Roman MD [address] [facility] [address] [place] [address] PCP - General Family Medicine 03/17/19 documented as of this encounter
--- OUTSIDE RECORDS SUMMARY | 2025-05-04 08:01 | XMS_ITS | Encounter Summary ---
Author Organization [facility] Address [address] [place] [address] Care Team Providers Care V Belt Inspector Name Role Phone Alyson Maher MD Unavailable Will Roman MD Primary Care Provider [phone] Pablo Sullivan MD Unavailable [phone] Will Roman MD Unavailable Encounter Details Date Type Department Care Team (Late st Contact Info) Description 09/21/2024 Scanned Document [facility] Primary Care [address] [place], [place] [phone] Will Roman MD 80 [facility] 201 [place], [place] Social History Tobacco Use Types Packs/Day [...] on filedocumented in this encounter Care Teams V Belt Inspector Relationship Specialty Start Date End Date Will Roman MD PCP - General Medicine Hospitalist 05/26/19 Will Roman MD [address] [place] [address] PCP - [place] Commercial Attributed 07/12/24 Alyson Mahre MD Hematology Oncology 04/04/19 Pablo Sullivan MD Cardiovascular Disease 09/12/24 documented as of this encounter
--- OUTSIDE RECORDS SUMMARY | 2025-05-04 08:01 | XMS_ITS | Encounter Summary ---
Author Organization [facility] Address [address] [place] [address] Care Team Providers Care Dance Hall Hostess Name Role Phone Alyson Maher MD Unavailable [phone] Will Roman MD Primary Care Provider [phone] Will Roman MD Unavailable [phone] Pablo Sullivan MD Unavailable [phone] Will Roman MD Unavailable Encounter Details Date Type Department Care Team (Late st Contact Info) Description 08/04/2019 Scanned Document [facility] Heart & Vascular [place] at [facility] [address] [place] [phone] Tucker Murray MD [address] [place] [address] Social History Tobacco Use Types Packs/Day Years [...] on filedocumented in this encounter Care Teams Dance Hall Hostess Relationship Specialty Start Date End Date Will Roman MD PCP - General Medicine Hospitalist 05/26/19 Will Roman MD [address] [address] PCP - [place] Commercial Attributed 02/10/20 08/11/21 Will Roman MD [address] [address] PCP - [place] Commercial Attributed 07/12/24 Alyson Maher MD Hematology Oncology 04/04/19 Pablo Sullivan MD [address] [address] Cardiovascular Disease 09/12/24 documented as of this encounter
--- OUTSIDE RECORDS SUMMARY | 2025-05-04 08:01 | XMS_ITS | Encounter Summary ---
Author Organization [facility] Address [address] [place] [address] Care Team Providers Care Chart Writer Name Role Phone Alyson Maher MD Unavailable Will Roman MD Primary Care Provider Will Roman MD Unavailable [phone] Pablo Sullivan MD Unavailable [phone] Will Roman MD Unavailable Reason for Visit * Reason Comments Medication Refill Encounter Details Date Type Department Care Team (Late st Contact Info) Description 02/16/2021 Refill [facility] [address] [place] [phone] Will Roman MD 80 [facility] [address] [place], [place] [phone] Familial hypercholesterolemia Social History Tobacco Use Types Packs/Day [...] have Coronavirus / COVID-19? No / Unsure 02/19/2021 4:01 PM EDT documented as of this encounter Miscellaneous Notes * Telephone Encounter - Jocelyn Sheikh MA - 02/17/2021 12:57 PM EDT Lab orders placed and patient will be having done before we send in refill documented in this encounter Plan of Treatment Not on file documented as of this encounter Visit Diagnoses Diagnosis Familial hypercholesterolemia documented in this encounter Care Teams Chart Writer Relationship Specialty Start Date End Date Will Roman MD PCP - General Medicine Hospitalist 05/26/19 Will Roman MD [address] [address] PCP - [place] Commercial Attributed 02/10/20 08/11/21 Will Roman MD [address] [address] PCP - [place] Commercial Attributed 07/12/24 Alyson Maher MD Hematology Oncology 04/04/19 Pablo Sullivan MD [address] [address] Cardiovascular Disease 09/12/24 documented as of this encounter
--- OUTSIDE RECORDS SUMMARY | 2025-05-04 08:01 | XMS_ITS | Encounter Summary ---
Author Organization [facility] Address [address] [place] [address] Care Team Providers Care Family Law Specialist Name Role Phone Will Roman MD Primary Care Provider Encounter Details Date Type Department Care Team (Late st Contact Info) Description 07/14/2019 Scanned Document [facility] Health Information Management [address] [place] [address] External, Provider Social History Tobacco Use Types [...] documented as of this encounter Care Teams Family Law Specialist Relationship Specialty Start Date End Date Will Roman MD [address] [address] PCP - General Family Medicine 03/17/19 documented as of this encounter
--- OUTSIDE RECORDS SUMMARY | 2025-05-04 08:01 | XMS_ITS | Encounter Summary ---
Author Organization [facility] Address [address] [place] [phone] Care Team Providers Care Blow Molding Machine Operator Name Role Phone Will Roman MD Primary Care Provider Encounter Details Date Type Department Care Team (Late st Contact Info) Description 04/18/2019 Scanned Document [facility] Health Information Management [address] [place] [id number] External, Provider Social History Tobacco Use Types [...] Procedure Name Priority Date/Time Associated Diagnosis Comments LAB SCAN Routine 04/18/2019 documented in this encounter Results * Lab Scan (04/18/2019) us Provider External LAB BLOOD ORDERABLES Final Res ult documented in this encounter Visit Diagnoses Not on filedocumented in this encounter Additional Health Concerns Assessment Noted Time PHQ-9 Depression Total Score: 11 019 12:23 PM EDT documented as of this encounter Care Teams Blow Molding Machine Operator Relationship Specialty Start Date End Date Will Roman MD [address] [facility] [address] [place] [phone] PCP - General Family Medicine 03/17/19 documented as of this encounter
--- OUTSIDE RECORDS SUMMARY | 2025-05-04 08:01 | XMS_ITS | Encounter Summary ---
Author Organization [facility] Address [address] [place] [address] Care Team Providers Care Executive Compensation Analyst Name Role Phone Alyson Maher MD Unavailable [phone] Will Roman MD Primary Care Provider [phone] Will Roman MD Unavailable [phone] Pablo Sullivan MD Unavailable [phone] Will Roman MD Unavailable Encounter Details Date Type Department Care Team (Late st Contact Info) Description 07/27/2019 Telephone [facility] Heart & Vascular [place] at [address] [phone] Tucker Murray MD [address] [place] [address] Social History Tobacco Use Types Packs/Day Years [...] on filedocumented in this encounter Care Teams Executive Compensation Analyst Relationship Specialty Start Date End Date Will Roman MD PCP - General Medicine Hospitalist 05/26/19 Will Roman MD [address] [address] PCP - [place] Commercial Attributed 02/10/20 08/11/21 Will Roman MD [address] [address] PCP - [place] Commercial Attributed 07/12/24 Alyson Maher MD Hematology Oncology 04/04/19 Pablo Sullivan MD [address] [address] Cardiovascular Disease 09/12/24 documented as of this encounter
--- OUTSIDE RECORDS SUMMARY | 2025-05-04 08:01 | XMS_ITS | Encounter Summary ---
Author Organization [facility] Address [address] [place] [address] Care Team Providers Care Amusement Park Entertainer Name Role Phone Alyson Maher MD Unavailable Will Roman MD Primary Care Provider [phone] Pablo Sullivan MD Unavailable [phone] Will Roman MD Unavailable [phone] Encounter Details Date Type Department Care Team (Late st Contact Info) Description 09/01/2024 Scanned Document [facility] Primary Care [address] [place], [place] [phone] Will Roman MD 80 [facility] [address] [place], [place] Social History Tobacco Use Types Packs/Day [...] on filedocumented in this encounter Care Teams Amusement Park Entertainer Relationship Specialty Start Date End Date Will Roman MD PCP - General Medicine Hospitalist 05/26/19 Will Roman MD [address] [place] [address] PCP - [place] Commercial Attributed 07/12/24 Alyson Maher MD Hematology Oncology 04/04/19 Pablo Sullivan MD Cardiovascular Disease 09/12/24 documented as of this encounter
--- OUTSIDE RECORDS SUMMARY | 2025-05-04 08:01 | XMS_ITS | Clinical Summary ---
Author Organization [facility] Address [address] [place] [address] Care Team Providers Care Sales Exhibitor Name Role Phone Percy Romangeeta Primary Care Provider Allergies Active Allergy Reactions Criticality Noted Date Comments Latex Other (See Comments) Medium 08/23/2015 Reaction unknown Nsaids 09/11/2015 CHRONIC LIVER DISEASE Medications Medication Sig Dispensed Refills Start Date End Date Status ezetimibe (ZETIA) tablet 10 mgIndications:Hypertr iglyceridemia,Mitral valve insufficiency, unspecified etiology,Mixed hyperlipidemia Take 1 tablet (10 mg total) by mouth daily. 90 tablet 3 03/30/2023 Active Additional Information Patient not taking.Reason: Other, Reported on 04/13/2024 atorvastatin (LIPITOR) tablet 80 mgIndications:E78.1 Take 1 tablet (80 mg total) by mouth daily. 90 tablet 3 09/27/2023 Active Additional Information Patient not taking.Reason: Other, Reported on 04/13/2024 Active Problems Problem Noted Date Diagnosed Date Hypertriglyceridemia 10/22/2021 Mitral regurgitation 10/22/2021 Mixed hyperlipidemia 10/22/2021 Immunizations Name Administration Dates Next Due Covid-19 (Pfizer) Dilution Required 11/07/2020,0 10/17/2020 Social History Tobacco Use Types Packs/Day Years Used Date Smoking Tobacco: Never Smokeless Tobacco: Never Tobacco Cessation:Counseling Given: Not Answered Alcohol Use Standard Drinks/Week Comments Yes 28 (1 standard drink = 0.6 oz pu re alcohol) 3-4 beers per day. Sex and Gender Information Value Date Recorded Sex Assigned at Male 09/04/2021 1:23 PM EST Gender Identity Not on file Sexual Orientation Not on file Job Start Date Occupation Industry Not on file Not on file Not on file Last Filed Vital Signs Vital Sign Reading Time Taken Comments Blood Pressure 124/82 04/13/2024 2:30 PM EDT Pulse 62 04/13/2024 2:30 PM EDT Temperature 36.7 C (98 F) 09/17/2015 7:46 AM EST Respiratory Rate 15 09/17/2015 7:46 AM EST Oxygen Saturation 99% 09/17/2015 7:46 AM EST Inhaled Oxygen Concentration - - Weight 70.8 kg (156 lb) 04/13/2024 2:30 PM EDT Height 168.9 cm (5' 6.5 ) 04/13/2024 2:30 PM EDT Body Mass Index 24.8 04/13/2024 2:30 PM EDT Plan of Treatment Health Maintenance Due Date Last Done Comments Hepatitis B Vaccines (1 of 3 - 3-dose series) 1968 Hepatitis C Screening 1968 Depression Screening 1980 Preventative Health Evaluation 1986 DTap / Tdap / Td (1 - Tdap) 1987 Colon Cancer Screening (Colonoscopy) 2013 Shingrix-Zoster Vaccine (1 o f 2) 2018 COVID-19 Vaccine (4 2024-2 6 season) 2025 2021, 11/07/2020, 10/17/2020 Influenza Vaccine (#1) 2025 0, 05/13/2020 Pneumococcal Vaccine Aged Out No long er eligible based on patient's age to complete this topic RSV Ped < 20 months Aged Out No longe r eligible based on patient's age to complete this topic Medical Devices Implanted Type Area Flaker Operator Device Identifier Shelf Expiration Date Model / Serial / Lot Cement Simplex P Full Dose Radiopaque Tobramycin Bone - [id number] - [id number] Implanted:Qty: 1 on 09/16/2015 by Dav Rodriguez [place] [facility] [place] [facility] [place] Left: Hip [employer] 09/08/2016 [id number] / / [id number] Cup Bhr 54mm 48mm Head Acetabular - [id number] - [id number] Implanted:Qty: 1 on 09/16/2015 by Dav Rodriguez MD [place] [facility] [place] [facility] [place] Left: Hip [employer] 02/08/2019 [id number] / / [id number] Head Bhr 48mm Femoral - [id number] - [id number] Implanted:Qty: 1 on 09/16/2015 by Dav Rodriguez MD [place] [facility] [place] [facility] Left: Hip [employer] 08/01/2020 [id number] / / [id number] Hip Bhr Resurfacing - [id number] - [id number] Implanted:Qty: 1 on 09/16/2015 by Dav Rodriguez MD [place] [facility] [place] [facility] Left: Hip [employer] [id number] / / Procedures Procedure Name Priority Date/Time Associated Diagnosis Comments LIPID PROFILE (PREP L2) Routine 03/01/2025 12:27 PM EDT ASHD (arteriosclerotic heart disease) from Last 3 Months Results * (ABNORMAL) Lipid Profile (03/01/2025 12:27 PM EDT) Cholesterol, Total 204(H) <200 mg/dL [facility] HDL Cholesterol 47 > OR = 40 mg/dL [facility] Triglycerides 434(H) <150 mg/dL [facility] Comment: If a non-fasting specimen was collected, consider repeat triglyceride testing on a fasting specimen if clinically indicated. Kendra et al. J. of Clin. Lipidol. 2015;9:129-169. LDL-Cholesterol mg/dL (calc) [facility] Comment: LDL cholesterol not calculated. Triglyceride levels [...] LDL-C. Luis ROSARIO et al. NAIDA. 2013;310(19): 1647-8166 (http://education.[employer].Ohai/faq/QMA528) Chol/HDLC Ratio 4.3 <5.0 (calc) [facility] Non HDL Cholesterol 157(H) <130 mg/dL (calc) [facility] Comment: For patients with diabetes plus 1 major ASCVD risk factor, treating to a non-HDL-C goal of <100 mg/dL (LDL-C of <70 mg/dL) is considered a therapeutic option. 03/01/2025 12:2 7 PM EDT 03/01/2025 12:28 PM EDT Narrative [facility] - 03/02/2025 10:06 AM EDT REQ 1 OF 3 FASTING:NO FASTING: NO Resulting Agency Comment Performing Organization Information: Site ID: [id number] Name: [facility] Address: [address] [place] [id number] Director: Jessica Reddy M.D. Pablo Sullivan MD LAB BLOOD ORDERABLES [facility] from Last 3 Months Advance Directives For more information, please contact: [phone] Latest Code Status on File Code Status Date Activated Date Inactivated Comments Full Code 09/16/2015 9:27 AM 09/17/2015 6:25 PM This co de status was ascertained in the following way: per chart. Code Status History Code Status Date Activated Date Inactivated Comments Full Code 09/16/2015 5:20 AM 09/16/2015 9:27 AM This co de status was ascertained in the following way: per chart. Care Teams Sales Exhibitor Relationship Specialty Start Date End Date Will Roman [address] [place] [address] PCP - General Family Medicine 09/04/21
[2025-05-04 08:14] VITALS: BMI 24.8
--- NOTE | 2025-05-04 08:14 | A.OFFVIS_ITS ---
Vital Signs 05/04/25 08:14 Height 5 ft 6.5 in Weight 156 lb BMI 24.8 Intake Visit Reasons: RT ankle pain, unspecified chronicity, Lt toe pain Intake Note: Faheem is a 54 year old male who presents today as a new patient for an evaluation of his right ankle pain and left 3rd toe pain. Patient has had the pain for about 2 years and he has not tried any treatment for his pain recently . Patient has no radiology testing in chart. He mentions his previous youth development specialist informed him of his 3rd toe being fractured. Allergies No Known Allergies Allergy (Verified 05/04/25 08:15) Medication List - Last Reconciled 05/04/25 by Heather Hayden DPM aspirin 81 mg PO BID atorvastatin 80 mg PO DAILY ergocalciferol (vitamin D2) 1,250 mcg PO QWEEK ezetimibe 10 mg PO DAILY HPI Comments Details: The patient is a 54-year-old male with a past medical history as seen below presenting with left foot pain and right ankle pain. The patient reports a previous known fractured 3rd toe and describes significant pain in the middle toe of the left foot, which is sensitive to pressure and has recurrent callus formation noted to the distal tip of the toe. He mentions that the toe is so painful that he avoids going barefoot and experiences sharp pain when pressure is applied. Regarding his ankle, the patient has a history of flatfoot deformity, which was identified during a previous consultation where an x-ray was performed. He experiences clicking sounds during physical activities such as hiking, which are audible to others, and wears boots to manage the condition. The patient describes pain behind the ankle, specifically at the Achilles tendon insertion, which feels like something is biting him. He reports numbness in the heel upon waking and tenderness when pressure is applied to the area. The patient has a history of athletic activity, including playing soccer until age 48 and having two hip replacements. He has been advised to wear a custom molded brace inpatient states he has various somu-ijz-ygsvjip ankle braces that he utilizes. He denies wearing any toe sleeves or toe caps for the left foot. He denies any other pedal concerns at this time. [facility] Medical History (Updated 05/07/25 @ 09:37 by Heather Hayden DPM) Insertional Achilles tendinopathy Arthritis of right ankle Other enthesopathy of right foot and ankle Injury of left toe Other specified epidermal thickening Left foot pain Right ankle pain Review of Systems Const Details: - Musculoskeletal: Reports pain in the 3rd toe of the left foot, numbness in the right heel, pain, and clicking in the right ankle. Denies pain in other toes. - Neurological: Reports numbness in the right heel upon waking. All systems reviewed & are unremarkable except as noted in HPI and below Physical Exam Vital Signs: BMI result Body Mass Index 24.8 Extrem Other: B/L LE Focused Physical Exam: Derm: No open lesions, abrasions, or wounds noted. Pre-hyperkeratotic lesion noted to the distal tip of the left 3rd toe. No maceration noted. No ecchymosis or discoloration noted. Skin supple and turgor WNL. No clinical signs of infection. No edema noted. Palpable bony prominence noted to the medial aspect of the midfoot in the area of the TMTJ. Vasc: DP/PT pulses palpable. CFT < 3 secs. Temp gradient warm to warm. Pedal hair diminished. Minimal varicosities noted. Neuro: Protective sensations slightly diminished to light touch. MSK: Right - Pain on palpation to the right ankle. Pain with ROM of the ankle with crepitus noted. ROM of the forefoot and hindfoot WNL. No fluctuance noted. Mildly antalgic gait noted unassisted with the use of an ankle supportive brace. Pain on palpation to the posterior aspect of the heel and area of the Achilles tendon insertion point. No palpable dell noted. Negative Garcia test. Left - Pain on palpation to the 3rd toe. Pain with ROM of the forefoot in the area of the 3rd toe , remaining toes WNL. No crepitus noted. No fluctuance noted. ROM of the hindfoot and ankle WNL. Mildly antalgic gait noted. Hammertoe deformities noted, worse to 3rd toe - consistent with recurrent hyperkeratotic lesion to the area. Results Reviewed Results Reviewed: Ordered Right ankle and left foot xrays to be performed prior to next visit. Assessment & Plan Assessment & Plan (1) Right ankle pain: Code(s): M25.571 - Pain in right ankle and joints of right foot Category: Medical Qualifiers: Chronicity: chronic Qualified Code(s): M25.571 - Pain in right ankle and joints of right foot; G89.29 - Other chronic pain (2) Left foot pain: Code(s): M79.672 - Pain in left foot Category: Medical (3) Other specified epidermal thickening: Code(s): L85.8 - Other specified epidermal thickening Category: Medical (4) Injury of left toe: Code(s): S99.922A - Unspecified injury of left foot, initial encounter Category: Medical Qualifiers: Encounter type: initial encounter Qualified Code(s): S99.922A - Unspecified injury of left foot, initial encounter (5) Other enthesopathy of right foot and ankle: Code(s): M77.51 - Other enthesopathy of right foot and ankle Category: Medical (6) Arthritis of right ankle: Code(s): M19.071 - Primary osteoarthritis, right ankle and foot Category: Medical (7) Insertional Achilles tendinopathy: Code(s): M76.60 - Achilles tendinitis, unspecified leg Category: Medical Plan Patient was informed and verbally consented to the use of an ambient scribe for clinic note documentation during this visit. I discussed with the patient the possibility of Achilles tendinitis and the potential need for surgical intervention if conservative measures do not alleviate symptoms. We reviewed the importance of obtaining x-rays to assess the extent of the bone spurs and the cause of the toe pain. I explained the benefits and risks of conservative vs. surgical intervention, recommend conservative at this time and surgical intervention if conservative treatment fails. We also discussed the use of ibuprofen for pain management and the importance of wearing supportive footwear. The patient was advised to follow up after obtaining the x-rays to determine the next steps in management. - Ordered x-rays of the right ankle and left foot to assess cause of pain. - Recommended toe sleeves and toe cap. - Continue wearing a stabilizing ankle brace. - Wear supportive shoe gear and avoid barefoot walking. - Advised use of ibuprofen for pain management, especially during periods of increased activity. RTC in 1 week. Orders: Orders XR ankle RT min 3V 05/04/25 M25.571 - Pain in right ankle and joints of right foot XR foot LT min 3V 05/04/25 M79.672 - Pain in left foot Coding Level of Care Code New Pt Level 4 (82814) Diagnoses Chronic pain of right ankle M25.571; G89.29 Chronicity: chronic Left foot pain M79.672 Other specified epidermal thickening L85.8 Injury of toe on left foot, initial encounter S99.920F Encounter type: initial encounter Other enthesopathy of right foot and ankle M77.51 Arthritis of right ankle M19.071 Insertional Achilles tendinopathy M76.60 Time Spent (min) 45
== END 2025-05-04 08:42 | disposition home or self-care (01) ==
PROVIDERS: Visit Provider Student in an Organized Health Care Education/Training Program
DX: M25.571 Pain in right ankle and joints of right foot (principal); G89.29 Other chronic pain; M79.672 Pain in left foot; L85.8 Other specified epidermal thickening; S99.922A Unspecified injury of left foot, initial encounter; M77.51 Other enthesopathy of right foot and ankle; M19.071 Primary osteoarthritis, right ankle and foot; M76.60 Achilles tendinitis, unspecified leg
CPT/HCPCS: 99204

== ENCOUNTER 2025-05-04 07:57 | Outpatient (REF) | payer BC, SELFPAY ==
--- NOTE | ~2025-05-04 | XR_ITS ---
EXAMINATION: X-ray right ankle X-ray left foot CLINICAL INFORMATION: Right ankle pain. Left foot pain COMPARISON: None TECHNIQUE: Right ankle 3 views. Left foot 3 views. FINDINGS: Right ankle: Bone mineralization is decreased. Moderate-severe tibiotalar arthritis, joint space loss. Small corticated ossification distal to the medial malleolus. Small corticated ossification lateral to the lateral malleolus. Ankle mortise is symmetric, likely positioning/technique. No visible acute fracture or dislocation. No significant ankle joint effusion. Small plantar calcaneal spur. Left foot: Bony mineralization is decreased. No visible acute fracture or dislocation. No suspicious bony lesions. Alignment is anatomic. Mild arthritis in some of the interphalangeal joints of the toes. No erosions. No abnormal soft tissue calcification. Plantar calcaneal spur. Vascular calcifications. XR/XR foot LT min 3V IMPRESSION: Right ankle: No acute findings. Moderate-severe tibiotalar joint arthritis. Left foot: No acute findings Mild arthritis as above. Electronically signed by: Maurice Esteves MD 05/04/2025 10:03 AM EDT
--- NOTE | ~2025-05-04 | XR_ITS ---
EXAMINATION: X-ray right ankle X-ray left foot CLINICAL INFORMATION: Right ankle pain. Left foot pain COMPARISON: None TECHNIQUE: Right ankle 3 views. Left foot 3 views. FINDINGS: Right ankle: Bone mineralization is decreased. Moderate-severe tibiotalar arthritis, joint space loss. Small corticated ossification distal to the medial malleolus. Small corticated ossification lateral to the lateral malleolus. Ankle mortise is symmetric, likely positioning/technique. No visible acute fracture or dislocation. No significant ankle joint effusion. Small plantar calcaneal spur. Left foot: Bony mineralization is decreased. No visible acute fracture or dislocation. No suspicious bony lesions. Alignment is anatomic. Mild arthritis in some of the interphalangeal joints of the toes. No erosions. No abnormal soft tissue calcification. Plantar calcaneal spur. Vascular calcifications. XR/XR ankle RT min 3V IMPRESSION: Right ankle: No acute findings. Moderate-severe tibiotalar joint arthritis. Left foot: No acute findings Mild arthritis as above. Electronically signed by: Maurice Esteves MD 05/04/2025 10:03 AM EDT
== END 2025-05-04 07:58 | disposition home or self-care (01) ==
LOC: HO.XRAY 07:57
PROVIDERS: Visit Provider Student in an Organized Health Care Education/Training Program
DX: S99.922A Unspecified injury of left foot, initial encounter (principal); G89.29 Other chronic pain; M25.571 Pain in right ankle and joints of right foot; L85.8 Other specified epidermal thickening; M77.51 Other enthesopathy of right foot and ankle; M19.071 Primary osteoarthritis, right ankle and foot; M76.61 Achilles tendinitis, right leg; X58.XXXA Exposure to other specified factors, initial encounter
CPT/HCPCS: 73610; 73630

== ENCOUNTER → 2025-05-04 09:14 | Outpatient (BNV) | payer BC, SELFPAY | PROVIDERS: Visit Provider Radiology Diagnostic Ultrasound | DX: M19.071 Primary osteoarthritis, right ankle and foot (principal); M19.072 Primary osteoarthritis, left ankle and foot | CPT/HCPCS: 73610; 73630 ==

== ENCOUNTER 2025-05-10 07:58 | Outpatient (AMB) | payer BC, SELFPAY ==
--- OUTSIDE RECORDS SUMMARY | 2021-12-28 15:49 | XMS_ITS | Encounter Summary ---
Author Organization [facility] Address [address] [place] [address] Care Team Providers Care Gericare Aide Name Role Phone Alyson Maher MD Unavailable [phone] Will Roman MD Primary Care Provider [phone] Encounter Details Date Type Department Care Team (Late st Contact Info) Description 12/28/2021 3:49 PM EDT Hospital Encounter [facility] [address] [place] [address] Jah Bess PA Social History Tobacco Use Types Packs/Day Years Used Date Smoking Tobacco: Never Smokeless Tobacco: Never Alcohol Use Standard Drinks/Week Comments Yes 40 (1 standard drink = 0.6 oz pu re alcohol) 6+ daily AUDIT-C Answer Date Recorded Q1: How often do you have a drink containing alcohol? 4 or more times a week 12/17/2022 Q2: How many drinks containi ng alcohol do you have on a typical day when you are drinking? 5 or 6 Q3: How often do you have si x or more drinks on one occasion? Daily or almost daily 12/17/2022 PHQ-2 Answer Date Recorded PHQ-2 Total Score 0 11/06/2021 Sex and Gender Information Value Date Recorded Sex Assigned at Male 12/21/2022 9:10 AM EDT Legal Sex Male 8:50 AM EDT Gender Identity Male 12/21/2022 9:10 AM EDT Sexual Orientation Choose not to disclose 06/12/ 2023 9:10 AM EDT COVID-19 Exposure Response Date Recorded In the last 10 days, have yo u been in contact with someone who was confirmed or suspected to have Coronavirus/COVID-19? No / Unsure 12/14/2022 1:59 PM EDT documented as of this encounter Functional Status * AUDIT-C Score Answer Date of Assessment Author 10 12/17/2022 11:36 AM EDT Ángela Alvares RN * Question Answer Date of Assessment Author AUDIT-C Total Score - Male 10 12/17/2022 11:36 AM EDT Ángela Morrell RN Q1: How often do you have a drink containing alcohol? 4 or more times a week 12/17/2022 11:36 AM EDT Ángela Morrell RN Q2: How many drinks containing alcohol do you have on a typical day when you are drinking? 5 or 6 12/17/2022 11:36 AM EDT Ángela Morrell RN Q3: How often do you have six or more drinks on one occasion? Daily or almost daily 12/17/2022 11:36 AM EDT Ángela Morrell RN documented as of this encounter Plan of Treatment Not on file documented as of this encounter Procedures Procedure Name Priority Date/Time Associated Diagnosis Comments XR ANKLE 3+ VIEWS-RIGHT STAT 12/28/2021 3:59 PM EDT Acute right ankle pain documented in this encounter Results * XR Ankle 3+ views-Right (12/28/2021 3:59 PM EDT) Anatomical Region Laterality Modality Ankle Right Computed Radiogr aphy 12/28/2021 4:08 PM EDT Impressions 12/28/2021 4:09 PM EDT Small linear opacity likely small avulsion fracture or calcification at lateral malleolus. Small bony opacity along the medial malleolus at the medial clear space and along the inferior aspect of the medial malleolus likely due to prior trauma/calcification. Narrative 12/28/2021 4:09 PM EDT TECHNIQUE: 3 views of the ankle are provided. COMPARISON: No prior films are available for comparison. FINDINGS: Small linear opacity likely small avulsion fracture or calcification at lateral malleolus. Small bony opacity along the medial malleolus at the medial clear space and along the inferior aspect of the medial malleolus likely due to prior trauma/calcification. There is no joint effusion. Plantar calcaneal osteophyte formation. Atherosclerotic vascular calcifications are seen. Calcification along the posterior superior aspect of the calcaneum. Procedure Note Kaushik Hamilton MD - 12/28/2021 TECHNIQUE: 3 views of the ankle are provided. COMPARISON: No prior films are available for comparison. FINDINGS: Small linear opacity likely small avulsion fracture or calcification atlateral malleolus. Small bony opacity along the medial malleolus at themedial clear space and along the inferior aspect of the medial malleoluslikely due to prior trauma/calcification. There is no joint effusion. Plantar calcaneal osteophyte formation. Atherosclerotic vascularcalcifications are seen. Calcification along the posterior superior aspectof the calcaneum. IMPRESSION: Small linear opacity likely small avulsion fracture or calcification atlateral malleolus. Small bony opacity along the medial malleolus at the medial clear spaceand along the inferior aspect of the medial malleolus likely due to priortrauma/calcification. Jah MARISCAL IMG DIAGNOSTIC IMAGING ORDERABL ES Final Result documented in this encounter Visit Diagnoses Not on filedocumented in this encounter Care Teams Gericare Aide Relationship Specialty Start Date End Date Will Roman MD PCP - General Medicine Hospitalist 05/26/19 Alyson Maher MD Hematology Oncology 04/04/19 documented as of this encounter
--- OUTSIDE RECORDS SUMMARY | 2024-08-08 14:19 | XMS_ITS | Encounter Summary ---
Author Organization [facility] Address [address] [place] [address] Care Team Providers Care Class 1 Owner Operator Name Role Phone Alyson Maher MD Unavailable [phone] Will Roman MD Primary Care Provider Will Roman MD Unavailable [phone] Encounter Details Date Type Department Care Team (Late st Contact Info) Description 08/08/2024 1:19 PM EST Hospital Encounter [facility] [address] [place] [address] Social History Tobacco Use Types [...] Significant finding has been communicated to Radiology Linter Operator for provider notification via the [employer] Findings Application on 08/08/2024 1:30 PM, Message ID [id number]. Narrative 08/08/2024 1:30 PM EST XR CHEST [...] Significant finding has been communicated to Radiology Linter Operator forprovider notification via the [employer] ActionCalera FindingsApplication on 08/08/2024 1:30 PM, Message ID [id number]. Aaron Alvarado II, RADHIKA IMTish DIAGNOSTIC IMAGING ORDERABLES Final Result documented in this encounter Visit Diagnoses Not on filedocumented in this encounter Care Teams Class 1 Owner Operator Relationship Specialty Start Date End Date Will Roman MD PCP - General Medicine Hospitalist 05/26/19 Will Roman MD [address] [place] [address] PCP - [place] [employer] Attributed 07/12/24 Alyson Maher MD Hematology Oncology 04/04/19 documented as of this encounter
--- OUTSIDE RECORDS SUMMARY | 2025-05-10 08:04 | XMS_ITS | Encounter Summary ---
Author Organization [facility] Address [address] [place] [address] Care Team Providers Care Equipment Planner Name Role Phone Alyson Maher MD Unavailable Will Roman MD Primary Care Provider Will Roman MD Unavailable Pablo Sullivan MD Unavailable [phone] Will Roman MD Unavailable [phone] Encounter Details Date Type Department Care Team (Late st Contact Info) Description 07/11/2019 Scanned Document [facility] Heart & Vascular [place] at [address] [phone] Alyson Maher MD [address] [place] [address] Social History Tobacco Use Types [...] on filedocumented in this encounter Care Teams Equipment Planner Relationship Specialty Start Date End Date Will Roman MD PCP - General Medicine Hospitalist 05/26/19 Will Roman MD [address] [address] PCP - [place] [employer] Attributed 02/10/20 08/11/21 Will Roman MD [address] [address] PCP - [place] [employer] Attributed 07/12/24 Alyson Maher MD Hematology Oncology 04/04/19 Pablo Sullivan MD [address] [address] Cardiovascular Disease 09/12/24 documented as of this encounter
--- OUTSIDE RECORDS SUMMARY | 2025-05-10 08:04 | XMS_ITS | Encounter Summary ---
Author Organization [facility] Address [address] [place] [address] Care Team Providers Care Board Catcher Name Role Phone Alyson Maher MD Unavailable [phone] Manohar Jensen MD Primary Care Provider [phone] Will Roman MD Primary Care Provider [phone] Will Roman MD Unavailable [phone] Pablo Sullivan MD Unavailable [phone] Will Roman MD Unavailable [phone] Encounter Details Date Type Department Care Team (Late st Contact Info) Description 05/22/2019 Scanned Document [facility] ORTHO SURGERY SCAN Orthopedic Surgery, Scan Social [...] on filedocumented in this encounter Care Teams Board Catcher Relationship Specialty Start Date End Date Manohar Jensen MD [address] [facility] [address] [place] [address] PCP - General Internal Medicine 05/01/19 05/25/19 Will Roman MD [address] [facility] [address] [place] [address] PCP - General Medicine Hospitalist 05/26/19 Will Roman MD [address] [place] [address] PCP - [place] [employer] Attributed 02/10/20 08/11/21 Will Roman MD [address] [place] [address] PCP - [place] [employer] Attributed 07/12/24 Alyson Maher MD Hematology Oncology 04/04/19 Pablo Sullivan MD [address] [place] [address] Cardiovascular Disease 09/12/24 documented as of this encounter
--- OUTSIDE RECORDS SUMMARY | 2025-05-10 08:04 | XMS_ITS | Encounter Summary ---
Author Organization [facility] Address [address] [place] [address] Care Team Providers Care Web Weaver Name Role Phone Alyson Maher MD Unavailable [phone] Will Roman MD Primary Care Provider [phone] Pablo Sullivan MD Unavailable [phone] Will Roman MD Unavailable [phone] Encounter Details Date Type Department Care Team (Late st Contact Info) Description 01/15/2022 Scanned Document [facility] PRIMARY CARE SCAN Primary Care, Scan Social [...] on filedocumented in this encounter Care Teams Web Weaver Relationship Specialty Start Date End Date Will Roman MD PCP - General Medicine Hospitalist 05/26/19 Will Roman MD [address] [address] PCP - [place] [employer] Attributed 07/12/24 Alyson Maher MD Hematology Oncology 04/04/19 Pablo Sullivan MD Cardiovascular Disease 09/12/24 documented as of this encounter
--- OUTSIDE RECORDS SUMMARY | 2025-05-10 08:05 | XMS_ITS | Patient Health Record ---
Author Organization [facility] Address [address] [place] [address] Care Team Providers Care Tree Trimmer Helper Name Role Phone Will Roman Primary Care Provider Unavaila ble Allergies Allergen (clinical drug ingredient) Drug/Non Drug Allergy documented on EMR Reaction Allergy Type Onset Date Status Latex latex (uncoded) Unknown Allergy Acti ve Reason For Referral No Information Social History Sex Assigned At : Social History Observation Description Sex Assigned At Male Problems Problem Type SNOMED Code ICD Code Onset Dates Problem Status W/U Status Risk Notes Problem Benign prostatic hypertrophy without outflow obstruction ([id number]) BPH without urinary obstruction (N40.0) Active confirmed Plan Of Treatment No Information Insurance Providers Payer Name Payer Address Payer Phone Subscriber Number Group Number Insured Name Patient Relationship to Insured Coverage Start Date Coverage End Date [place] [address] [place] [id number] [phone] [id number] [employer] Self - patient is the insured Medical (General) History Medical History History ICD Code bronchiole carcinoid tumor Surgical History Surgery Date(Month/Year) right lung surgery left hip replacement right knee replacxement/acl
--- OUTSIDE RECORDS SUMMARY | 2025-05-10 08:05 | XMS_ITS | Encounter Summary ---
Author Organization [facility] Address [address] [place] [address] Care Team Providers Care Children'S Tutor Nursery Name Role Phone Alyson Maher MD Unavailable Will Roman MD Primary Care Provider Pablo Sullivan MD Unavailable [phone] Will Roman MD Unavailable Reason for Visit * Reason Comments Medication Refill Encounter Details Date Type Department Care Team (Late st Contact Info) Description 02/06/2022 Refill [facility] Primary Care [address] [place], [place] [phone] Will Roman MD [address] [place] [address] [address] [place], [place] Acute right ankle pain; Closed avulsion [...] injury documented in this encounter Care Teams Children'S Tutor Nursery Relationship Specialty Start Date End Date Will Roman MD PCP - General Medicine Hospitalist 05/26/19 Will Roman MD [address] [place] [address] PCP - [place] [employer] Attributed 07/12/24 Alyson Maher MD Hematology Oncology 04/04/19 Pablo Sullivan MD Cardiovascular Disease 09/12/24 documented as of this encounter
--- OUTSIDE RECORDS SUMMARY | 2025-05-10 08:06 | XMS_ITS | Encounter Summary ---
Author Organization [facility] Address [address] [place] [address] Care Team Providers Care Drill Press Operator Name Role Phone Alyson Maher MD Unavailable Will Roman MD Primary Care Provider [phone] Will Roman MD Unavailable Pablo Sullivan MD Unavailable [phone] Will Roman MD Unavailable Encounter Details Date Type Department Care Team (Late st Contact Info) Description 08/04/2019 Scanned Document [facility] Heart & Vascular [place] at [facility] [address] [place] [phone] Tucker Murray MD [address] [place] [address] Social History Tobacco Use Types Packs/Day Years [...] on filedocumented in this encounter Care Teams Drill Press Operator Relationship Specialty Start Date End Date Will Roman MD PCP - General Medicine Hospitalist 05/26/19 Will Roman MD [address] [address] PCP - [place] [employer] Attributed 02/10/20 08/11/21 Will Roman MD [address] [address] PCP - [place] [employer] Attributed 07/12/24 Alyson Maher MD Hematology Oncology 04/04/19 Pablo Sullivan MD [address] [address] Cardiovascular Disease 09/12/24 documented as of this encounter
--- OUTSIDE RECORDS SUMMARY | 2025-05-10 08:06 | XMS_ITS | Encounter Summary ---
Author Organization [facility] Address [address] [place] [address] Care Team Providers Care Photolithographic Stripper Name Role Phone Alyson Maher MD Unavailable [phone] Will Roman MD Primary Care Provider Will Roman MD Unavailable Pablo Sullivan MD Unavailable [phone] Will Roman MD Unavailable [phone] Encounter Details Date Type Department Care Team (Late st Contact Info) Description 08/15/2019 Scanned Document [facility] [place] [facility] [address] [place] [phone] Tucker Murray MD [address] [place] [address] Social History Tobacco Use Types Packs/Day Years [...] on filedocumented in this encounter Care Teams Photolithographic Stripper Relationship Specialty Start Date End Date Will Roman MD PCP - General Medicine Hospitalist 05/26/19 Will Roman MD [address] [address] PCP - [place] [employer] Attributed 02/10/20 08/11/21 Will Roman MD [address] [address] PCP - [place] [employer] Attributed 07/12/24 Alyson Maher MD Hematology Oncology 04/04/19 Pablo Sullivan MD [address] [address] Cardiovascular Disease 09/12/24 documented as of this encounter
--- OUTSIDE RECORDS SUMMARY | 2025-05-10 08:06 | XMS_ITS | Encounter Summary ---
Author Organization [facility] Address [address] [place] [address] Care Team Providers Care Bobbin Washer Name Role Phone Alyson Maher MD Unavailable Will Roman MD Primary Care Provider Will Roman MD Unavailable [phone] Pablo Sullivan MD Unavailable [phone] Will Roman MD Unavailable Encounter Details Date Type Department Care Team (Late st Contact Info) Description 08/29/2019 Scanned Document [facility] Heart & [facility] [place] at [facility] [address] [place] [phone] Tucker Murray MD [address] [place] [address] Social History Tobacco Use Types Packs/Day Years [...] on filedocumented in this encounter Care Teams Bobbin Washer Relationship Specialty Start Date End Date Will Roman MD PCP - General Medicine Hospitalist 05/26/19 Will Roman MD [address] [address] PCP - [place] Commercial Attributed 02/10/20 08/11/21 Will Roman MD [address] [address] PCP - [place] Commercial Attributed 07/12/24 Alyson Maher MD Hematology Oncology 04/04/19 Pablo Sullivan MD [address] [address] Cardiovascular Disease 09/12/24 documented as of this encounter
--- OUTSIDE RECORDS SUMMARY | 2025-05-10 08:07 | XMS_ITS | Encounter Summary ---
Author Organization [facility] Address [address] [place] [address] Care Team Providers Care Silverer Name Role Phone Alyson Maher MD Unavailable Will Roman MD Primary Care Provider Will Roman MD Unavailable [phone] Pablo Sullivan MD Unavailable [phone] Will Roman MD Unavailable [phone] Encounter Details Date Type Department Care Team (Late st Contact Info) Description 07/27/2019 Telephone [facility] Heart & Vascular [place] at [address] [phone] Tucker Murray MD [address] [place] [address] Social History Tobacco Use Types Packs/Day Years [...] on filedocumented in this encounter Care Teams Silverer Relationship Specialty Start Date End Date Will Roman MD PCP - General Medicine Hospitalist 05/26/19 Will Roman MD [address] [address] PCP - [place] Commercial Attributed 02/10/20 08/11/21 Will Roman MD [address] [address] PCP - [place] Commercial Attributed 07/12/24 Alyson Maher MD Hematology Oncology 04/04/19 Pablo Sullivan MD [address] [address] Cardiovascular Disease 09/12/24 documented as of this encounter
--- OUTSIDE RECORDS SUMMARY | 2025-05-10 08:07 | XMS_ITS | Encounter Summary ---
Author Organization [facility] Address [address] [place] [address] Care Team Providers Care Product Lead Name Role Phone Will Roman MD Primary Care Provider Encounter Details Date Type Department Care Team (Late st Contact Info) Description 03/30/2019 Scanned Document [facility] Health Information Management [address] [place] [address] External, Provider Social History Tobacco Use Types [...] on filedocumented in this encounter Care Teams Product Lead Relationship Specialty Start Date End Date Will Roman MD [address] [phone] PCP - General Family Medicine 03/17/19 documented as of this encounter
--- OUTSIDE RECORDS SUMMARY | 2025-05-10 08:07 | XMS_ITS | Encounter Summary ---
Author Organization [facility] Address [address] [place] [address] Care Team Providers Care Operating Room Scheduler Name Role Phone Alyson Maher MD Unavailable [phone] Will Roman MD Primary Care Provider [phone] Pablo Sullivan MD Unavailable [phone] Will Roman MD Unavailable [phone] Encounter Details Date Type Department Care Team (Late st Contact Info) Description 12/10/2022 Scanned Document [facility] ORTHO SURGERY SCAN Dav Rodriguez MD [address] [place] [address] Social History Tobacco Use Types Packs/Day Years [...] on filedocumented in this encounter Care Teams Operating Room Scheduler Relationship Specialty Start Date End Date Will Roman MD PCP - General Medicine Hospitalist 05/26/19 Will Roman MD [address] [place] [address] PCP - [place] Commercial Attributed 07/12/24 Alyson Maher MD Hematology Oncology 04/04/19 Pablo Sullivan MD Cardiovascular Disease 09/12/24 documented as of this encounter
--- OUTSIDE RECORDS SUMMARY | 2025-05-10 08:08 | XMS_ITS | Encounter Summary ---
Author Organization [facility] Address [address] [place] [address] Care Team Providers Care Identification Officer Name Role Phone Alyson Maher MD Unavailable Will Roman MD Primary Care Provider Will Roman MD Unavailable [phone] Pablo Sullivan MD Unavailable [phone] Will Roman MD Unavailable Reason for Visit * Reason Comments Medication Refill Encounter Details Date Type Department Care Team (Late st Contact Info) Description 11/05/2019 Refill [facility] Heart & Vascular [place] at [address] [phone] Tucker Murray MD [address] [place] [address] Medication Refill Social History Tobacco Use Types [...] hypercholesterolemia documented in this encounter Care Teams Identification Officer Relationship Specialty Start Date End Date Will Roman MD PCP - General Medicine Hospitalist 05/26/19 Will Roman MD [address] [address] PCP - [place] Commercial Attributed 02/10/20 08/11/21 Will Roman MD [address] [address] PCP - [place] Commercial Attributed 07/12/24 Alyson Maher MD Hematology Oncology 04/04/19 Pablo Sullivan MD [address] [address] Cardiovascular Disease 09/12/24 documented as of this encounter
--- OUTSIDE RECORDS SUMMARY | 2025-05-10 08:08 | XMS_ITS | Encounter Summary ---
Author Organization [facility] Address [address] [place] [address] Care Team Providers Care Deputy Sheriff Civil Division Name Role Phone Alyson Maher MD Unavailable Will Roman MD Primary Care Provider [phone] Pablo Sullivan MD Unavailable [phone] Will Roman MD Unavailable [phone] Reason for Visit * Reason Comments Call Patient Advice Only Encounter Details Date Type Department Care Team (Late st Contact Info) Description 03/02/[address] [address] Will Roman MD [address] [address] Call Patient; Advice Only Social [...] on filedocumented in this encounter Care Teams Deputy Sheriff Civil Division Relationship Specialty Start Date End Date Will Roman MD PCP - General Medicine Hospitalist 05/26/19 Will Roman MD [address] [place] [address] PCP - [place] Commercial Attributed 07/12/24 Alyson Maher MD Hematology Oncology 04/04/19 Pablo Sullivan MD Cardiovascular Disease 09/12/24 documented as of this encounter
--- OUTSIDE RECORDS SUMMARY | 2025-05-10 08:08 | XMS_ITS | Encounter Summary ---
Author Organization [facility] Address [address] [place] [address] Care Team Providers Care Cutting Machine Offbearer Name Role Phone Will Roman MD Primary Care Provider Encounter Details Date Type Department Care Team (Late st Contact Info) Description 07/14/2019 Scanned Document [facility] Health Information Management [address] [place] [phone] External, Provider Social History Tobacco Use Types [...] documented as of this encounter Care Teams Cutting Machine Offbearer Relationship Specialty Start Date End Date Will Roman MD [address] [phone] PCP - General Family Medicine 03/17/19 documented as of this encounter
--- OUTSIDE RECORDS SUMMARY | 2025-05-10 08:08 | XMS_ITS | Clinical Summary ---
Author Organization [facility] [address] [facility] Address [address] [place] [address] Care Team Providers Care Hearing Officer Name Role Phone Will Roman MD Primary Care Provider [phone] Allergies No known active allergies Medications multivitamin [...] 137 See Comment mg/dL 08/11/2019 2:04 PM [facility] Comment: Total Cholesterol (mg/dL) Adults (>18 years) Children (<18 years) Desirable <200 <170 Borderline-High 200-239 170-199 High >=240 >=200 HDL 42 >=40 mg/dL 08/11/2019 2:04 PM [facility] Triglycerides 122 See Comment mg/dL 08/11/2019 2:04 PM [facility] Comment: Triglycerides (mg/dL) Adults (>18 years) Children (<18 years) Desirable <150 Not Established Borderline-High 150-199 Not Established High 200-499 Not Established Chol/HDL Ratio 3.3 0.0 - 5.0 08/11/2019 2:04 PM [facility] LDL Calculated 71 See Comment mg/dL 08/11/2019 2:04 PM EST [facility] Comment: LDL Cholesterol (mg/dL) Adults (>18 years) Children (<18 years) Desirable <100 <110 Above Desirable 100-129 Not Established Borderline-High 130-159 110-129 High 160-189 >=130 Very High >=190 Not Established Blood Venipuncture / Unknown 08/11/2019 8:49 AM EST 08/11/2019 8:49 AM EST Alyson Maher MD LAB BLOOD ORDERABLES Final R esult Performing Organization Address City/State/[facility] Co de Phone Number [facility] [address] [place] [address] * (ABNORMAL) Comprehensive metabolic panel (08/11/2019 8:15 AM EST) Sodium 140 135 - 145 mmol/L 08/11/2019 8:44 AM EST [facility] Potassium 3.7 3.3 - 5.0 mmol/L 08/11/2019 8:44 AM EST [facility] Chloride 105 96 - 106 mmol/L 08/11/2019 8:44 AM EST [facility] CO2 26 22 - 30 mmol/L 08/11/2019 8:44 AM EST [facility] Anion Gap 9 7 - 17 08/11/2019 8:44 AM EST [facility] Glucose 102(H) 70 - 100 mg/dL 08/11/2019 8:44 AM EST [facility] BUN 13 8 - 18 mg/dL 08/11/2019 8:44 AM EST [facility] Creatinine 0.91 0.50 - 1.20 mg/dL 08/11/2019 8:44 AM [facility] Calcium 9.1 8.8 - 10.2 mg/dL 08/11/2019 8:44 AM [facility] BUN/Creatinine Ratio 14.3 10.0 - 20.0 08/11/2019 8:44 AM [facility] Total Protein 6.8 6.0 - 8.3 g/dL 08/11/2019 8:44 AM [facility] Albumin 3.5 3.5 - 5.0 g/dL 08/11/2019 8:44 AM [facility] Total Bilirubin 0.8 <1.20 mg/dL 08/11/2019 8:44 AM [facility] Alkaline Phosphatase 60 30 - 130 U/L 08/11/2019 8:44 AM [facility] Alanine Aminotransferase (ALT) 29 0 - 34 U/L 08/11/2019 8:44 AM [facility] Aspartate Aminotransferase (AST) 30 0 - 34 U/L 08/11/2019 8:44 AM [facility] Globulin 3.3 g/dL 08/11/2019 8:44 AM [facility] A/G Ratio 1.1 1.0 - 2.2 08/11/2019 8:44 AM [facility] AST/ALT Ratio 1.0 0.3 - 4.9 08/11/2019 8:44 AM [facility] eGFR (Afr Amer) >60 >60 mL/min/1. 73m2 08/11/2019 8:44 AM [facility] Comment: Values under 60mL/min/1.73m2 may indicate CKD if noted for more than 3 months. eGFR is only valid if creatinine is at steady state. eGFR (NON -Bahraini) >60 >60 mL/min/1. 73m2 08/11/2019 8:44 AM [facility] Comment: Values under 60mL/min/1.73m2 may indicate CKD if noted for more than 3 months. eGFR is only valid if creatinine is at steady state. Blood Venipuncture / Unknown 08/11/2019 8:15 AM EST 08/11/2019 8:15 AM EST us Alyson Maher MD LAB BLOOD ORDERABLES Final R esult [facility] [address] [place] [address], [facility] [phone] from Last 3 Months or Most Recently Relevant to Health Maintenance Insurance BS BS BS Care Teams Hearing Officer Relationship Specialty Start Date End Date Will Roman MD [address] [facility] [address] [place] [phone] PCP - General Family Medicine 03/17/19
--- OUTSIDE RECORDS SUMMARY | 2025-05-10 08:08 | XMS_ITS | Encounter Summary ---
Author Organization [facility] Address [address] [place] [phone] Care Team Providers Care Manufacturing Engineer Machining Name Role Phone Will Roman MD Primary Care Provider [phone] Encounter Details Date Type Department Care Team (Late st Contact Info) Description 04/18/2019 Scanned Document [facility] Health Information Management [address] [place] [phone] External, Provider Social History Tobacco Use Types [...] documented as of this encounter Care Teams Manufacturing Engineer Machining Relationship Specialty Start Date End Date Will Roman MD [address] [facility] [address] [place] [phone] PCP - General Family Medicine 03/17/19 documented as of this encounter
--- OUTSIDE RECORDS SUMMARY | 2025-05-10 08:08 | XMS_ITS | Encounter Summary ---
Author Organization [facility] Address [address] [place] [address] Care Team Providers Care Other Wood Processing Machine Operator Name Role Phone Will Roman MD Primary Care Provider [phone] Encounter Details Date Type Department Care Team (Latest Contact Info) Description 04/07/2019 Transcribed Orders [facility] [address] [place] [address] Alyson Maher MD [address] [place] [address] Abnormal laboratory test result (Primary [...] documented as of this encounter Care Teams Other Wood Processing Machine Operator Relationship Specialty Start Date End Date Will Roman MD [address] [facility] [address] [place] [address] PCP - General Family Medicine 03/17/19 documented as of this encounter
--- OUTSIDE RECORDS SUMMARY | 2025-05-10 08:09 | XMS_ITS | Clinical Summary ---
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 TAKE 1 TABLET BY MOUTH EVERY DAY 90 tablet 3 10/09/2024 Active Active Problems Problem Noted Date Diagnosed Date ASHD (arteriosclerotic heart disease) 05/03/2025 Pure hypercholesterolemia 05/03/2025 Encounters Date Type Department Care Team Description 05/03/2025 2:30 PM EDT Office Visit Cardiology - [address] [place] [address] Pablo Sullivan MD ASHD (arteriosclerotic [...] REPLACEMENT TOTAL HIP WITH RESURFACING IMPLANTS - [place]; Surgeon: Dav Rodriguez MD; Location: [facility] ([facility]); Service: Orthopedics; Laterality: Left; Medical History Medical History Date Comments Asthma DX:Asthma Osteoarthritis DX:Osteoarthriti s Pneumonia DX:Pneumonia Lung tumor (benign) DX:Lung tumo r (benign) Alcohol dependence (CMS/HCC V24, CMS/HCC V28) DX:Alcohol dependence ([facility]) Diplopia DX:Diplopia;COMM ENT:S/P R ORBITAL FRACTURE Hyperlipidemia [...] 2:30 PM EDT Office Visit Cardiology - [place] [address] [facility] [address] [place] [address] Pablo Sullivan MD 110 [facility] [address] [place] [address] Health Maintenance Due Date Last Done [...] 12 lead (05/03/2025 4:38 PM EDT) Impressions Alayna Randall - 05/03/2025 4:38 PM EDT Sinus bradycardia with first-degree AV block Minimal voltage criteria for LVH Pablo Sullivan MD ECG ORDERABLES Final Result * (ABNORMAL) Lipid panel (03/01/2025 12:27 PM EDT) Cholesterol Total 204(H) <200 mg/dL [facility] HDL Cholesterol 47 > OR = 40 mg/dL [facility] Triglycerides 434(H) <150 mg/dL [facility] Comment: If a non-fasting specimen was collected, consider repeat triglyceride testing on a fasting specimen if clinically indicated. Kendra et al. J. of Clin. Lipidol. 2015;9:129-169. LDL Cholesterol mg/dL (calc) [facility] Comment: LDL cholesterol not calculated. Triglyceride levels [...] LDL-C. Luis ROSARIO et al. NAIDA. 2013;310(19): 1854-9067 (http://education.Nitrous.IO/faq/UHE205) Chol/HDLC Ratio 4.3 <5.0 (calc) [facility] Non HDL Cholesterol 157(H) <130 mg/dL (calc) [facility] Comment: For patients with diabetes plus 1 major ASCVD risk factor, treating to a non-HDL-C goal of <100 mg/dL (LDL-C of <70 mg/dL) is considered a therapeutic option. 03/01/2025 12:2 7 PM EDT 03/01/2025 12:28 PM EDT Narrative [facility] - 03/02/2025 10:06 AM EDT REQ 1 OF 3 FASTING:NO FASTING: NO us Pablo Sullivan MD LAB BLOOD ORDERABLES Final Res ult [facility] ([facility]) [facility] [address] [place] [address] from Last 3 Months Insurance [facility] Care Teams Flight Mechanic Relationship Specialty Start Date End Date Will Roman 200 [facility] [place] [place] PCP - General Family Medicine 09/04/21
--- OUTSIDE RECORDS SUMMARY | 2025-05-10 08:09 | XMS_ITS | Encounter Summary ---
Author Organization [facility] Address [address] [place] [address] Care Team Providers Care Armor Reconnaissance Specialist Name Role Phone Alyson Maher MD Unavailable [phone] Will Roman MD Primary Care Provider [phone] Pablo Sullivan MD Unavailable [phone] Will Roman MD Unavailable Encounter Details Date Type Department Care Team (Late st Contact Info) Description 09/14/2024 Scanned Document [facility] Primary Care [address] [place], [place] [phone] Will Roman MD 80 [facility] 201 [place] Social History Tobacco Use Types Packs/Day [...] on filedocumented in this encounter Care Teams Armor Reconnaissance Specialist Relationship Specialty Start Date End Date Will Roman MD PCP - General Medicine Hospitalist 05/26/19 Will Roman MD [address] [place] [address] PCP - [place] Commercial Attributed 07/12/24 Alyson Maher MD Hematology Oncology 04/04/19 Pablo Sullivan MD Cardiovascular Disease 09/12/24 documented as of this encounter
--- OUTSIDE RECORDS SUMMARY | 2025-05-10 08:09 | XMS_ITS | Encounter Summary ---
Author Organization [facility] Address [address] [place] [address] Care Team Providers Care Ui Ux Web Developer Name Role Phone Alyson Maher MD Unavailable Will Roman MD Primary Care Provider Will Roman MD Unavailable [phone] Pablo Sullivan MD Unavailable [phone] Will Roman MD Unavailable Reason for Visit * Reason Comments Medication Refill Encounter Details Date Type Department Care Team (Late st Contact Info) Description 06/25/2020 Refill [facility] Heart & Vascular [place] at [address] [phone] Tucker Murray MD [address] [place] [address] Medication Refill Social History Tobacco Use Types [...] hypercholesterolemia documented in this encounter Care Teams Ui Ux Web Developer Relationship Specialty Start Date End Date Will Roman MD PCP - General Medicine Hospitalist 05/26/19 Will Roman MD [address] [address] PCP - [place] Commercial Attributed 02/10/20 08/11/21 Will Roman MD [address] [address] PCP - [place] Commercial Attributed 07/12/24 Alyson Maher MD Hematology Oncology 04/04/19 Pablo Sullivan MD [address] [address] Cardiovascular Disease 09/12/24 documented as of this encounter
--- OUTSIDE RECORDS SUMMARY | 2025-05-10 08:09 | XMS_ITS | Encounter Summary ---
Author Organization [facility] Address [address] [place] [phone] Care Team Providers Care Paint Technician Name Role Phone Will Roman MD Primary Care Provider Encounter Details Date Type Department Care Team (Late st Contact Info) Description 07/20/2019 Scanned Document [facility] Health Information Management [address] [place] [address] External, Provider Social History Tobacco Use Types [...] documented as of this encounter Care Teams Paint Technician Relationship Specialty Start Date End Date Will Roman MD [address] [address] PCP - General Family Medicine 03/17/19 documented as of this encounter
--- OUTSIDE RECORDS SUMMARY | 2025-05-10 08:09 | XMS_ITS | Encounter Summary ---
Author Organization [facility] Address [address] [place] [address] Care Team Providers Care Bank Consultant Name Role Phone Alyson Maher MD Unavailable [phone] Will Roman MD Primary Care Provider [phone] Pablo Sullivan MD Unavailable [phone] Will Roman MD Unavailable [phone] Encounter Details Date Type Department Care Team (Late st Contact Info) Description 01/04/2023 Scanned Document [facility] PRIMARY CARE SCAN Primary Care, [...] on filedocumented in this encounter Care Teams Bank Consultant Relationship Specialty Start Date End Date Will Roman MD PCP - General Medicine Hospitalist 05/26/19 Will Roman MD [address] [place] [address] PCP - [place] Commercial Attributed 07/12/24 Alyson Maher MD Hematology Oncology 04/04/19 Pablo Sullivan MD Cardiovascular Disease 09/12/24 documented as of this encounter
--- OUTSIDE RECORDS SUMMARY | 2025-05-10 08:09 | XMS_ITS | Encounter Summary ---
Author Organization [facility] Address [address] [place] [address] Care Team Providers Care Dance Instructor Name Role Phone Alyson Maher MD Unavailable [phone] Will Roman MD Primary Care Provider Will Roman MD Unavailable Pablo Sullivan MD Unavailable [phone] Will Roman MD Unavailable Reason for Visit * Reason Comments Medication Refill Encounter Details Date Type Department Care Team (Late st Contact Info) Description 02/16/2021 Refill [facility] [place] [address] [place] [phone] Will Roman MD 80 [facility] [address]inder [address] [place], [place] [phone] Familial hypercholesterolemia Social History Tobacco Use Types [...] hypercholesterolemia documented in this encounter Care Teams Dance Instructor Relationship Specialty Start Date End Date Will Roman MD PCP - General Medicine Hospitalist 05/26/19 Will Roman MD [address] [address] PCP - [place] Commercial Attributed 02/10/20 08/11/21 Will Roman MD [address] [address] PCP - [place] Commercial Attributed 07/12/24 Alyson Maher MD Hematology Oncology 04/04/19 Pablo Sullivan MD [address] [address] Cardiovascular Disease 09/12/24 documented as of this encounter
--- OUTSIDE RECORDS SUMMARY | 2025-05-10 08:09 | XMS_ITS | Clinical Summary ---
Author Organization [facility] Address [address] [place] [address] Care Team Providers Care Adjunct Instructor In Economics Name Role Phone Percy Romangeeta Primary Care Provider [phone] Allergies Active Allergy Reactions Criticality Noted Date [...] this topic Medical Devices Implanted Type Area Pusher Operator Device Identifier Shelf Expiration Date Model / Serial / Lot Cement Simplex P Full Dose Radiopaque Tobramycin Bone - [id number] - [id number] Implanted:Qty: 1 on 09/16/2015 by Dav Rodriguez MD at [facility] and [facility] Left: Hip [employer] 09/08/2016 [id number] / / [id number] Cup Bhr 54mm 48mm Head Acetabular - [id number] - [id number] Implanted:Qty: 1 on 09/16/2015 by Dav Rodriguez MD at [facility] Left: Hip [employer] 02/08/2019 [id number] / / [id number] Head Bhr 48mm Femoral - [id number] - [id number] Implanted:Qty: 1 on 09/16/2015 by Dav Rodriguez MD at [facility] Left: Hip [employer] 08/01/2020 [id number] / / [id number] System Hip Bhr Resurfacing - [id number] - [id number] Implanted:Qty: 1 on 09/16/2015 by Dav Rodriguez MD at [facility] Left: Hip [employer] [id number] / / Procedures Procedure Name Priority Date/Time [...] LDL-C. Luis ROSARIO et al. NAIDA. 2013;310(19): 2237-9854 (http://education.[employer]/faq/SUE117) Chol/HDLC Ratio 4.3 <5.0 (calc) [facility] Non [...] Performing Organization Information: Site ID: [id number] Name: [facility] Address: [address] [place] [address] Director: Jessica Reddy M.D. Pablo Sullivan MD LAB BLOOD ORDERABLES [facility] from Last 3 Months Advance Directives For more information, please contact: [phone] Latest Code Status on File Code Status [...] the following way: per chart. Care Teams Adjunct Instructor In Economics Relationship Specialty Start Date End Date Will Roman [address] [place] [address] PCP - General Family Medicine 09/04/21
--- OUTSIDE RECORDS SUMMARY | 2025-05-10 08:09 | XMS_ITS | Encounter Summary ---
Author Organization [facility] Address [address] [place] [address] Care Team Providers Care Road Manager Name Role Phone Alyson Maher MD Unavailable [phone] Will Roman MD Primary Care Provider Will Roman MD Unavailable [phone] Pablo Sullivan MD Unavailable [phone] Will Roman MD Unavailable Encounter Details Date Type Department Care Team (Late st Contact Info) Description 04/03/2020 Scanned Document [facility] [address] [address] Deanne Gibbs MD [address] [place] [address] Social History Tobacco Use Types Packs/Day [...] on filedocumented in this encounter Care Teams Road Manager Relationship Specialty Start Date End Date Will Roman MD PCP - General Medicine Hospitalist 05/26/19 Will Roman MD [address] [place] [address] PCP - [place] Commercial Attributed 02/10/20 08/11/21 Will Roman MD [address] [address] PCP - [place] Commercial Attributed 07/12/24 Alyson Maher MD Hematology Oncology 04/04/19 Pablo Sullivan MD [address] [place] [address] Cardiovascular Disease 09/12/24 documented as of this encounter
--- OUTSIDE RECORDS SUMMARY | 2025-05-10 08:09 | XMS_ITS | Encounter Summary ---
Author Organization [facility] Address [address] [place] [address] Care Team Providers Care Video Intern Name Role Phone Alyson Maher MD Unavailable Will Roman MD Primary Care Provider [phone] Pablo Sullivan MD Unavailable [phone] Will Roman MD Unavailable Encounter Details Date Type Department Care Team (Late st Contact Info) Description 09/01/2024 Scanned Document [facility] Primary Care [address] [place], [place] [phone] Will Roman MD 80 [facility] [address] [place], [place] Social History Tobacco Use Types Packs/Day [...] on filedocumented in this encounter Care Teams Video Intern Relationship Specialty Start Date End Date Will Roman MD PCP - General Medicine Hospitalist 05/26/19 Will Roman MD [address] [place] [address] PCP - [place] Commercial Attributed 07/12/24 Alyson Maher MD Hematology Oncology 04/04/19 Pablo Sullivan MD Cardiovascular Disease 09/12/24 documented as of this encounter
--- OUTSIDE RECORDS SUMMARY | 2025-05-10 08:09 | XMS_ITS | Encounter Summary ---
Author Organization [facility] Address [address] [place] [address] Care Team Providers Care Electric Sign Wirer Name Role Phone Alyson Maher MD Unavailable Will Roman MD Primary Care Provider [phone] Pablo Sullivan MD Unavailable [phone] Will Roman MD Unavailable [phone] Encounter Details Date Type Department Care Team (Late st Contact Info) Description 09/21/2024 Scanned Document [facility] Primary Care [address] [place], [place] [phone] Will Roman MD 80 [facility] [address] [place], [place] Social History Tobacco Use Types Packs/Day [...] on filedocumented in this encounter Care Teams Electric Sign Wirer Relationship Specialty Start Date End Date Will Roman MD PCP - General Medicine Hospitalist 05/26/19 Will Roman MD [address] [place] [address] PCP - [place] Commercial Attributed 07/12/24 Alyson Maher MD Hematology Oncology 04/04/19 Pablo Sullivan MD Cardiovascular Disease 09/12/24 documented as of this encounter
--- OUTSIDE RECORDS SUMMARY | 2025-05-10 08:10 | XMS_ITS | Clinical Summary ---
Author Organization [facility] Address [address] [place] [address] Care Team Providers Care Millwright Instructor Name Role Phone Alyson Maher MD Unavailable [phone] Will Roman MD Primary Care Provider Pablo Sullivan MD Unavailable [phone] Will Roman MD Unavailable [phone] Allergies No known active allergies Medications acetaminophen [...] episode, preprocedure risk stratification sent to pt's Criminal Research Specialist (also advised pt to follow-up with Cardiology [...] AM EDT): Rx for Tadalafil sent to [facility] for 90 days Cause appears to be [...] clean your hands with an alcohol-based hand form grader operator that contains at least 60% alcohol. [...] Type Department Care Team Description 04/30/2025 [id number] [place] [address] Will Roman MD Referral from [...] Completed 03/16/2019 Medical Devices Implanted Type Area Practicing Md Anesthesiologist Device Identifier Shelf Expiration Date Model / Serial / Lot [id number] Cement Bone Plc R 40gm Grn - [id number] Implanted:Qty : 1 on 12/28/2022 by Dav Rodriguez MD at [facility] Cement Right: Knee [employer] 06/10/2027 [id number] / / [id number] Raulito-1104r Kim Bagley Knee System Size 4 Right Cr Femur Cemented Implanted:Qty : 1 on 12/28/2022 at [facility] Joint Prosthesis Right: Knee Other 09/24/2027 RAULITO-1104R / / [id number] Raulito-2204r Kim Bagley Knee System Size 4 Right Primary Tibia Baseplate Cemented Implanted:Qty : 1 on 12/28/2022 at [facility] Joint Prosthesis Right: Knee Other [id number] 11/24/2027 RAULITO-2204R / / [id number] Raulito-19840 Kim Bagley Knee System Retaining [place], Congruent Or Ultra Insert, Primary Tibia Baseplate Implanted:Qty : 1 on 12/28/2022 at [facility] Joint Prosthesis Right: Knee Other [id number] 10/07/2027 RAULITO-76238 / / [id number] Raulito-76031 Omnilife Science Ultra Tibial Insert Size 4x14mm Implanted:Qty : 1 on 12/28/2022 at [facility] Joint Prosthesis Right: Knee Other [id number] 02/03/2026 RAULITO-31095 / / [id number] Raulito-89761 Omnil[employer] Bagley Knee System 32mm X 8mm Implanted:Qty : 1 on 12/28/2022 at [facility] Joint Prosthesis Right: Knee Other [id number] 10/25/2027 RAULITO-69409 / / [id number] 15 Explanted Type Area Practicing Md Anesthesiologist Device Identifier Shelf Expiration Date Model / Serial / Lot Screw ( 1 Piece ) Explanted:Qty: 1 on 12/28/2022 at [facility] Screw Right: Knee UNKNOWN 0 / / [...] Count 5.7 3.8 - 10.8 Thousand/u L bead Button Red Blood Cell Count 4.63 4.20 - 5.80 Million/uL bead Button Hemoglobin 14.3 13.2 - 17.1 g/dL bead Button Hematocrit 42.7 38.5 - 50.0 % mo9 ([facility] [employer] MCV 92.2 80.0 - 100.0 fL mo9 ([facility] [employer] MCH 30.9 27.0 - 33.0 pg mo9 ([facility]) [facility] [employer] MCHC 33.5 32.0 - 36.0 g/dL bead Button Comment: For adults, a slight decrease in the calculated MCHC value (in the range of 30 to 32 g/dL) is most likely not clinically significant; however, it should be interpreted with caution in correlation with other red cell parameters and the patient's clinical condition. RDW 12.8 11.0 - 15.0 % bead Button Platelet Count 233 140 - 400 Thousand/u L bead Button MPV 10.8 7.5 - 12.5 fL bead Button Abs Neutrophils Auto 2,736 1,500 - 7,800 cells/uL bead Button Abs Lymphocytes Auto 2,246 850 - 3,900 cells/uL mo9 ([facility] [employer] Abs Monocytes Auto 479 200 - 950 cells/uL mo9 ([facility] [employer] Abs Eosinophils Auto 171 15 - 500 cells/uL mo9 ([facility] [employer] Abs Basophils Auto 68 0 - 200 cells/uL mo9 ([facility] [employer] Neutrophils Auto 48 % Que st [facility] [employer] Lymphocytes Auto 39.4 % [address] [facility] Monocytes Auto 8.4 % mo9 ([facility] [employer] Eosinophils Auto 3.0 % [address] [employer] Basophils Auto 1.2 % bead Button Blood Blood specimen / Unknown 03/01/2025 12:30 PM EDT 03/01/2025 12:32 PM EDT Narrative [facility] - 03/02/2025 11:19 AM EDT REQ 2 OF 3 FASTING:NO PATIENT REFUSED SOME TESTING; PATIENT ENCOURAGED FASTING: NO Kevin Dominguez MD LAB BLOOD ORDERABLES Final Res ult Performing Organization Address [facility]/ZIP Co de Phone Number [facility] [place] [place] [address] [place] [address] * Prealbumin (03/01/2025 12:30 PM EDT) Prealbumin 28 21 - 43 mg/dL bead Button Blood Blood specimen / Unknown 03/01/2025 12:30 PM EDT 03/01/2025 12:32 PM EDT Narrative [facility] - 03/02/2025 11:19 AM EDT REQ 2 OF 3 FASTING:NO PATIENT REFUSED SOME TESTING; PATIENT ENCOURAGED FASTING: NO Kevin Dominguez MD LAB BLOOD ORDERABLES Final Res ult Performing Organization Address [facility] de Phone Number [facility] [place] [address] [place] [phone] * (ABNORMAL) Comprehensive Metabolic Panel (03/01/2025 12:30 PM EDT) Glucose 99 65 - 139 mg/dL bead Button Comment: Non-fasting reference interval Blood Urea Nitrogen (BUN) 18 7 - 25 mg/dL bead Button Creatinine 0.84 0.70 - 1.30 mg/dL bead Button Creatinine w/ eGFR 102 > OR = 60 mL/min/1. 73m2 bead Button BUN/Creatinine Ratio SEE NOTE: 6 - 22 (calc) bead Button Comment: Not Reported: BUN and Creatinine are within reference range. Sodium 137 135 - 146 mmol/L bead Button Potassium 4.4 3.5 - 5.3 mmol/L bead Button Chloride 101 98 - 110 mmol/L bead Button CO2 27 20 - 32 mmol/L bead Button Calcium 9.5 8.6 - 10.3 mg/dL bead Button Protein, Total 7.2 6.1 - 8.1 g/dL bead Button Albumin 4.4 3.6 - 5.1 g/dL bead Button Globulin 2.8 1.9 - 3.7 g/dL (calc) bead Button Albumin/Globuli n Ratio 1.6 1.0 - 2.5 (calc) bead Button Bilirubin, Total 1.3(H) 0.2 - 1.2 mg/dL bead Button Alkaline Phosphatase 89 35 - 144 U/L bead Button Aspartate Aminotrans (AST) 29 10 - 35 U/L bead Button Alanine Aminotrans (ALT) 27 9 - 46 U/L bead Button Blood Blood specimen / Unknown 03/01/2025 12:30 PM EDT 03/01/2025 12:32 PM EDT [facility] - 03/02/2025 11:19 AM EDT REQ 2 OF 3 FASTING:NO PATIENT REFUSED SOME TESTING; PATIENT ENCOURAGED FASTING: NO Kevin Dominguez MD LAB BLOOD ORDERABLES Final Res ult [facility] [employer]) [address] [place] [phone] * Hepatitis C Ab (03/16/2019 12:00 PM EDT) Hepatitis C Antibody NON-REACT [place] NON-REACT [place] [facility] CONVERSION Hepatitis C Antibody (s/co) 0.02 <1.00 [facility] CONVERSION Comment: HCV antibody was non-reactive. There is no laboratory evidence of HCV infection. In most cases, no further action is required. However, if recent HCV exposure is suspected, a test for HCV RNA (test code 24166) is suggested. For additional information please refer to http://education.[employer]/faq/IDW89g0 (This link is being provided for informational/ educational purposes only.) Test performed at [facility] [address] [place] [address],[facility] [place] [address] Director: CHRIS CONKLIN MD 03/16/2019 12:0 0 PM EDT 03/16/2019 12:00 PM EDT Will Roman MD HX LAB Final Result MEDITECH CONVERSION from Last 3 Months or Most Recently Relevant to Health Maintenance Insurance [id number] [place] [address] - [facility] [id number] [place] [address] - [facility] WORK[facility]'S COMP Advance Directives * Full Code (Latest Code Status on File) Date Activated Date Inactivated Comments 12/28/2022 10:22 AM Care Teams [place] Instructor Relationship Specialty Start Date End Date Will Roman MD PCP - General Medicine Hospitalist 05/26/19 Will Roman MD [address] [address] PCP - [place] Commercial Attributed 07/12/24 Alyson Maher MD Hematology Oncology 04/04/19 Pablo Sullivan MD Cardiovascular Disease 09/12/24
--- OUTSIDE RECORDS SUMMARY | 2025-05-10 08:10 | XMS_ITS | Encounter Summary ---
Author Organization [facility] Address [address] [place] [address] Care Team Providers Care Floor Covering Printer Assistant Name Role Phone Alyson Maher MD Unavailable [phone] Will Roman MD Primary Care Provider [phone] Will Roman MD Unavailable [phone] Pablo Sullivan MD Unavailable [phone] Will Roman MD Unavailable [phone] Encounter Details Date Type Department Care Team (Late st Contact Info) Description 06/30/[address] [facility] Drive Through [address] [place] [phone] Manuelito Lemos PA-C [address] [place] [address] Encounter for laboratory testing for COVID-19 virus [...] Jessie Wynn, Ph.D., Laboratory DirectorTests performed at [facility] Nasopharyngeal swab / Unknown 06/30/2020 11:07 AM EST 06/30/2020 11:07 AM EST Narrative KITA JE Marisel WEAVER - 07/02/2020 9:35 PM EST Performed by [facility] [address] [place], [place] [id number], CLIA# [id number] and [place] License# [id number] Manuelito Lemos PA-C MICROBIOLOGY - GENERAL OR DERABLES Final Result KITA WEAVER documented in this encounter Visit Diagnoses Diagnosis Encounter for laboratory testing for COVID-19 virus documented in this encounter Care Teams Floor Covering Printer Assistant Relationship Specialty Start Date End Date Will Roman MD PCP - General Medicine Hospitalist 05/26/19 Will Roman MD [address] [place] [address] PCP - [place] Commercial Attributed 02/10/20 08/11/21 Will Roman MD [address] [address] PCP - [place] [employer] Attributed 07/12/24 Alyson Maher MD Hematology Oncology 04/04/19 Pablo Sulilvan MD [address] [address] Cardiovascular Disease 09/12/24 documented as of this encounter
--- OUTSIDE RECORDS SUMMARY | 2025-05-10 08:10 | XMS_ITS | Encounter Summary ---
Author Organization [facility] Address [address] [place] [address] Care Team Providers Care Geographic Information System Surveyor Name Role Phone Alyson Maher MD Unavailable [phone] Will Roman MD Primary Care Provider Pablo Sullivan MD Unavailable [phone] Will Roman MD Unavailable [phone] Encounter Details Date Type Department Care Team (Late st Contact Info) Description 08/29/2021 Scanned Document [facility] [place] at [facility] [address] [place] [phone] Pablo Farah, LOIDA [address] [place], [place] [phone] Social History Tobacco Use Types Packs/Day Years [...] on filedocumented in this encounter Care Teams Geographic Information System Surveyor Relationship Specialty Start Date End Date Will Roman MD PCP - General Medicine Hospitalist 05/26/19 Will Roman MD [address] [place] [address] PCP - [place] Commercial Attributed 07/12/24 Alyson Maher MD Hematology Oncology 04/04/19 Pablo Sullivan MD Cardiovascular Disease 09/12/24 documented as of this encounter
--- OUTSIDE RECORDS SUMMARY | 2025-05-10 08:10 | XMS_ITS | Encounter Summary ---
Author Organization [facility] Address [address] [place] [address] Care Team Providers Care Agile Test Lead Name Role Phone Alyson Maher MD Unavailable Will Roman MD Primary Care Provider [phone] Pablo Sullivan MD Unavailable [phone] Will Roman MD Unavailable Encounter Details Date Type Department Care Team (Late st Contact Info) Description 08/29/2021 Scanned Document [facility] Heart & Vascular [place] [facility] [address] [place] [phone] Pablo Farah, LOIDA [address] [place], [place] [phone] Social History Tobacco Use Types Packs/Day Years [...] on filedocumented in this encounter Care Teams Agile Test Lead Relationship Specialty Start Date End Date Will Roman MD PCP - General Medicine Hospitalist 05/26/19 Will Roman MD [address] [place] [address] PCP - [place] Commercial Attributed 07/12/24 Alyson Maher MD Hematology Oncology 04/04/19 Pablo Sullivan MD Cardiovascular Disease 09/12/24 documented as of this encounter
[2025-05-10 08:22] VITALS: BMI 24.8
--- NOTE | 2025-05-10 08:22 | MHC.OFFVIS ---
Vital Signs 05/10/25 08:22 Height 5 ft 6.5 in Weight 156 lb BMI 24.8 Intake Visit Reasons: f/u xrays: right ankle pain & left foot pain Intake Note: Faheem is a 54 year old male who presents today for a follow up on his right ankle and left foot pain. During his last visit he was advised to continue using his stabilizing ankle brace and recommended the use of supportive shoe wears, toe sleeves, and toe cap and advised to use Ibuprofen as needed for pain management. Patient reports things are not going well. Ankle X ray IMPRESSION: Right ankle: No acute findings. Moderate-severe tibiotalar joint arthritis. Left foot: No acute findings Mild arthritis as above. Foot X-ray IMPRESSION: Right ankle: No acute findings. Moderate-severe tibiotalar joint arthritis. Left foot: No acute findings Mild arthritis as above. Allergies No Known Allergies Allergy (Verified 05/10/25 08:23) HPI Comments Details: The patient is a 54-year-old male presenting for a follow up of left foot and right ankle pain related to bone spurs, plantar fasciitis, hammertoes, and arthritis. Patient states he continues to experiences pain, worsened to the left foot 3rd toe hammertoe, which are described as severe and causing significant pain even without pressure. The patient states he is interested in surgical intervention to correct the deformities due to severity of pain. He states he continues to hear clicking while walking. He experiences some numbness to the right heel. Patient denies using the toe cap or toe sleeve at this time. Patient continues to wear ankle brace. He denies any other pedal concerns at this time. [facility] Medical History (Updated 05/12/25 @ 14:37 by Heather Hayden DPM) Plantar fasciitis Calcaneal spur of both feet Hammertoe of right foot Insertional Achilles tendinopathy Arthritis of right ankle Other enthesopathy of right foot and ankle Injury of left toe Other specified epidermal thickening Left foot pain Right ankle pain Review of Systems Const Details: - Musculoskeletal: Reports pain in the 3rd toe of the left foot, numbness in the right heel, pain to the right heel and ankle, and clicking in the right ankle. Denies pain in other toes. - Neurological: Reports numbness in the right heel upon waking. All systems reviewed & are unremarkable except as noted in HPI and below Physical Exam Vital Signs: BMI result Body Mass Index 24.8 Extrem Other: B/L LE Focused Physical Exam: Derm: No open lesions, abrasions, or wounds noted. Pre-hyperkeratotic lesion noted to the distal tip of the left 3rd toe. No maceration noted. No ecchymosis or discoloration noted. Skin supple and turgor WNL. No clinical signs of infection. No edema noted. Palpable bony prominence noted to the medial aspect of the midfoot in the area of the TMTJ. Vasc: DP/PT pulses palpable. CFT < 3 secs. Temp gradient warm to warm. Pedal hair diminished. Minimal varicosities noted. Neuro: Protective sensations slightly diminished to light touch. MSK: Right - Pain on palpation to the right ankle. Pain with ROM of the ankle with crepitus noted. Reduced ROM of the right ankle noted. ROM of the forefoot and hindfoot WNL. No fluctuance noted. Mildly antalgic gait noted unassisted with the use of an ankle supportive brace. Pain on palpation to the posterior aspect of the heel and area of the Achilles tendon insertion point. No palpable dell noted. Negative Garcia test. Left - Pain on palpation to the 3rd toe. Pain with ROM of the forefoot in the area of the 3rd toe , remaining toes WNL. No crepitus noted. No fluctuance noted. ROM of the hindfoot and ankle WNL. Mildly antalgic gait noted. Hammertoe deformities noted, worse to 3rd toe - consistent with recurrent hyperkeratotic lesion to the area. Results Reviewed Results Reviewed: Podiatry Read of Right ankle xray (05/04/25): Joint space narrowing noted to the ankle with appearance of old distal medial malleolus fracture. Diffuse arthritic changes noted with osteophyte formation. Ossicle noted to the lateral aspect of the distal fibula and medial aspect of the distal medial malleolus. Soft tissue swelling noted. Calcaneal spur noted plantaraly. Right ankle xray (05/04/25): FINDINGS: Right ankle: Bone mineralization is decreased. Moderate-severe tibiotalar arthritis, joint space loss. Small corticated ossification distal to the medial malleolus. Small corticated ossification lateral to the lateral malleolus. Ankle mortise is symmetric, likely positioning/technique. No visible acute fracture or dislocation. No significant ankle joint effusion. Small plantar calcaneal spur. IMPRESSION: Right ankle: No acute findings. Moderate-severe tibiotalar joint arthritis. Podiatry Read of Left foot xray (05/04/25): Hammertoe deformities 2-4, 1st MPJ joint space narrowing noted. Plantar calcaneal bone spur noted. Calcifications noted to the vessels. Mild arthritis noted. Left foot xray (05/04/25): FINDINGS: Left foot: Bony mineralization is decreased. No visible acute fracture or dislocation. No suspicious bony lesions. Alignment is anatomic. Mild arthritis in some of the interphalangeal joints of the toes. No erosions. No abnormal soft tissue calcification. Plantar calcaneal spur. Vascular calcifications. IMPRESSION: Left foot: No acute findings Mild arthritis as above. Assessment & Plan Assessment & Plan (1) Right ankle pain: Code(s): M25.571 - Pain in right ankle and joints of right foot Category: Medical Qualifiers: Chronicity: chronic Qualified Code(s): M25.571 - Pain in right ankle and joints of right foot; G89.29 - Other chronic pain (2) Left foot pain: Code(s): M79.672 - Pain in left foot Category: Medical (3) Other specified epidermal thickening: Code(s): L85.8 - Other specified epidermal thickening Category: Medical (4) Injury of left toe: Code(s): S99.922A - Unspecified injury of left foot, initial encounter Category: Medical Qualifiers: Encounter type: initial encounter Qualified Code(s): S99.922A - Unspecified injury of left foot, initial encounter (5) Other enthesopathy of right foot and ankle: Code(s): M77.51 - Other enthesopathy of right foot and ankle Category: Medical (6) Arthritis of right ankle: Code(s): M19.071 - Primary osteoarthritis, right ankle and foot Category: Medical (7) Insertional Achilles tendinopathy: Code(s): M76.60 - Achilles tendinitis, unspecified leg Category: Medical (8) Hammertoe of right foot: Code(s): M20.41 - Other hammer toe(s) (acquired), right foot Category: Medical (9) Calcaneal spur of both feet: Code(s): M77.31 - Calcaneal spur, right foot; M77.32 - Calcaneal spur, left foot Category: Medical (10) Plantar fasciitis: Code(s): M72.2 - Plantar fascial fibromatosis Category: Medical Plan Patient was informed and verbally consented to the use of an ambient scribe for clinic note documentation during this visit. I discussed with the patient the diagnosis of bone spurs, arthritis, and hammertoes, explaining the surgical options and expected recovery timelines. We also reviewed the potential need for future ankle surgery due to arthritis, including the risks and benefits of fusion or replacement. The patient was advised on the importance of post-operative care and follow-up visits to ensure proper healing. - Recommended toe sleeves and toe cap. - Continue wearing a stabilizing ankle brace. - Wear supportive shoe gear and avoid barefoot walking. - Perform plantar fascial stretching exercises. - Will consider surgical intervention due to failed conservative treatment options. - Advised use of ibuprofen for pain management, especially during periods of increased activity. RTC in 2 months. Coding Level of Care Code Est Pt Level 4 (91311) Diagnoses Chronic pain of right ankle M25.571; G89.29 Chronicity: chronic Left foot pain M79.672 Other specified epidermal thickening L85.8 Injury of toe on left foot, initial encounter S93.398G Encounter type: initial encounter Other enthesopathy of right foot and ankle M77.51 Arthritis of right ankle M19.071 Insertional Achilles tendinopathy M76.60 Hammertoe of right foot M20.41 Calcaneal spur of both feet M77.31; M77.32 Plantar fasciitis M72.2 Time Spent (min) 37
== END 2025-05-10 08:47 | disposition home or self-care (01) ==
LOC: HO.HPODS 07:59
PROVIDERS: Visit Provider Student in an Organized Health Care Education/Training Program
DX: M25.571 Pain in right ankle and joints of right foot (principal); G89.29 Other chronic pain; M79.672 Pain in left foot; L85.8 Other specified epidermal thickening; S99.922A Unspecified injury of left foot, initial encounter; M77.51 Other enthesopathy of right foot and ankle; M19.071 Primary osteoarthritis, right ankle and foot; M76.60 Achilles tendinitis, unspecified leg; M20.41 Other hammer toe(s) (acquired), right foot; M77.31 Calcaneal spur, right foot; M77.32 Calcaneal spur, left foot; M72.2 Plantar fascial fibromatosis
CPT/HCPCS: 99214

== ENCOUNTER 2025-06-19 10:06 | Outpatient (AMB) | payer BC, SELFPAY ==
--- NOTE | 2025-06-19 10:18 | A.OFFVIS_ITS ---
Vital Signs 06/19/25 10:20 Height 5 ft 6.5 in Weight 156 lb BMI 24.8 Intake Visit Reasons: Plan for surgery Intake Note: Faheem is a 54 year old male who presents to the office today for a follow up right ankle pain. At last visit pt was instructed to continue wearing a stabilizing ankle brace and to perform plantar fascial stretching exercises. Pt states everything is going well however he is still experiencing significant pain in his left foot. Allergies No Known Allergies Allergy (Verified 06/19/25 10:20) HPI Comments Details: The patient is a 55 year old male presenting for surgical planning of the left foot. He reports the pain is uncontrollable and affects his activities of daily living, noting he must drag his foot when descending stairs. The patient wishes to proceed with surgery on the left foot and defer further treatment to the right ankle at this time patient states the left is worse than the right. He denies any new pedal injuries. He denies any other pedal concerns. [facility] Medical History (Updated 06/19/25 @ 12:32 by Heather Hayden DPM) Bone spur of left foot Hammertoe of left foot Plantar fasciitis Calcaneal spur of both feet Hammertoe of right foot Insertional Achilles tendinopathy Arthritis of right ankle Other enthesopathy of right foot and ankle Injury of left toe Other specified epidermal thickening Left foot pain Right ankle pain Review of Systems Const Details: - Musculoskeletal: Reports significant, uncontrollable pain in the left foot, localized to the forefoot and midfoot. Reports moderate pain to the right ankle. All systems reviewed & are unremarkable except as noted in HPI and below Physical Exam Vital Signs: BMI result Body Mass Index 24.8 Extrem Other: B/L LE Focused Physical Exam: Derm: No open lesions, abrasions, or wounds noted. Pre-hyperkeratotic lesion noted to the distal tip of the left 3rd toe. No maceration noted. No ecchymosis or discoloration noted. Skin supple and turgor WNL. No clinical signs of infection. No edema noted. Palpable bony prominence noted to the medial aspect of the midfoot in the area of the TMTJ. Vasc: DP/PT pulses palpable. CFT < 3 secs. Temp gradient warm to warm. Pedal hair diminished. Minimal varicosities noted. Neuro: Protective sensations slightly diminished to light touch. MSK: Right - Pain on palpation to the right ankle. Pain with ROM of the ankle with crepitus noted. Reduced ROM of the right ankle noted. ROM of the forefoot and hindfoot WNL. No fluctuance noted. Mildly antalgic gait noted unassisted with the use of an ankle supportive brace. Pain on palpation to the posterior aspect of the heel and area of the Achilles tendon insertion point. No palpable dell noted. Negative Garcia test. Left - Significant Pain on palpation to the 2nd and 3rd toe. Significant Pain with ROM of the forefoot in the area of the 2nd and 3rd toe , remaining toes WNL. No crepitus noted. No fluctuance noted. ROM of the hindfoot and ankle WNL. Midly antalgic gait noted. Hammertoe deformities noted, worse to the 2nd and 3rd toe - consistent with recurrent hyperkeratotic lesion to the area. Results Reviewed Results Reviewed: Podiatry Read of Right ankle xray (05/04/25): Joint space narrowing noted to the ankle with appearance of old distal medial malleolus fracture. Diffuse arthritic changes noted with osteophyte formation. Ossicle noted to the lateral aspect of the distal fibula and medial aspect of the distal medial malleolus. Soft tissue swelling noted. Calcaneal spur noted plantaraly. Right ankle xray (05/04/25): FINDINGS: Right ankle: Bone mineralization is decreased. Moderate-severe tibiotalar arthritis, joint space loss. Small corticated ossification distal to the medial malleolus. Small corticated ossification lateral to the lateral malleolus. Ankle mortise is symmetric, likely positioning/technique. No visible acute fracture or dislocation. No significant ankle joint effusion. Small plantar calcaneal spur. IMPRESSION: Right ankle: No acute findings. Moderate-severe tibiotalar joint arthritis. Podiatry Read of Left foot xray (05/04/25): Hammertoe deformities 2-4, 1st MPJ joint space narrowing noted. Plantar calcaneal bone spur noted. Calcifications noted to the vessels. Mild arthritis noted. Left foot xray (05/04/25): FINDINGS: Left foot: Bony mineralization is decreased. No visible acute fracture or dislocation. No suspicious bony lesions. Alignment is anatomic. Mild arthritis in some of the interphalangeal joints of the toes. No erosions. No abnormal soft tissue calcification. Plantar calcaneal spur. Vascular calcifications. IMPRESSION: Left foot: No acute findings Mild arthritis as above. Assessment & Plan Assessment & Plan (1) Left foot pain: Code(s): M79.672 - Pain in left foot Category: Medical (2) Hammertoe of left foot: Code(s): M20.42 - Other hammer toe(s) (acquired), left foot Category: Medical (3) Bone spur of left foot: Code(s): M77.52 - Other enthesopathy of left foot and ankle Category: Medical (4) Right ankle pain: Code(s): M25.571 - Pain in right ankle and joints of right foot Category: Medical Qualifiers: Chronicity: chronic Qualified Code(s): M25.571 - Pain in right ankle and joints of right foot; G89.29 - Other chronic pain (5) Other specified epidermal thickening: Code(s): L85.8 - Other specified epidermal thickening Category: Medical (6) Injury of left toe: Code(s): S99.922A - Unspecified injury of left foot, initial encounter Category: Medical Qualifiers: Encounter type: initial encounter Qualified Code(s): S99.922A - Unspecified injury of left foot, initial encounter (7) Other enthesopathy of right foot and ankle: Code(s): M77.51 - Other enthesopathy of right foot and ankle Category: Medical (8) Arthritis of right ankle: Code(s): M19.071 - Primary osteoarthritis, right ankle and foot Category: Medical (9) Insertional Achilles tendinopathy: Code(s): M76.60 - Achilles tendinitis, unspecified leg Category: Medical (10) Hammertoe of right foot: Code(s): M20.41 - Other hammer toe(s) (acquired), right foot Category: Medical (11) Calcaneal spur of both feet: Code(s): M77.31 - Calcaneal spur, right foot; M77.32 - Calcaneal spur, left foot Category: Medical (12) Plantar fasciitis: Code(s): M72.2 - Plantar fascial fibromatosis Category: Medical Plan Patient was informed and verbally consented to the use of an ambient scribe for clinic note documentation during this visit. I discussed the surgical plan with the patient for his left foot exostosis and rigid hammertoes 2 and 3. Indications for Surgery The patient presents with chronic left midfoot pain due to a symptomatic dorsal midfoot exostosis causing shoe irritation and pain with ambulation. The patient also has progressive hammertoe deformities of the left 2nd and 3rd toes resulting in abnormal pressure, preulcerative lesion, pain, and difficulty with footwear. Conservative treatments including shoe modification, padding, orthotics, activity modification, NSAIDs, and callus care have failed. Due to persistent pain and functional limitation, surgical intervention is indicated. Risks, benefits, and alternatives were discussed and the patient elects to proceed. Planned Procedures 1. Excision of dorsal midfoot exostosis, left foot 2. Hammertoe correction of left 2nd toe 3. Hammertoe correction of left 3rd toe Risks, Benefits, and Alternatives Risks include infection, delayed wound healing, recurrence of deformity, stiffness, floating toe, nerve irritation, scar formation, persistent pain, hardware irritation, DVT/PE, and anesthesia-related complications. Benefits include pain relief, reduced pressure from bony prominence, improved digital alignment, enhanced ambulation, and improved shoe wear tolerance. Alternatives include continued conservative care with padding, orthotics, shoe modification, and activity modification. The patient verbalizes understanding and consents to proceed. Preoperative Instructions ? NPO after midnight prior to surgery ? Hold NSAIDs and anticoagulants as directed ? Arrange transportation home Postoperative Plan ? Weightbearing status per intraoperative findings (heel WB vs protected WB) ? Surgical shoe or CAM boot ? Ice and elevation ? Pain control per protocol ? Follow-up 1 week postoperatively ? Gradual transition back to footwear as healing allows Orders: Referrals Podiatry Procedure Notification M20.42 - Other hammer toe(s) (acquired), left foot, M77.52 - Other enthesopathy of left foot and ankle, M79.672 - Pain in left foot Coding Level of Care Code Est Pt Level 4 (33524) Diagnoses Left foot pain M79.672 Hammertoe of left foot M20.42 Bone spur of left foot M77.52 Chronic pain of right ankle M25.571; G89.29 Chronicity: chronic Other specified epidermal thickening L85.8 Injury of toe on left foot, initial encounter S99.922A Encounter type: initial encounter Other enthesopathy of right foot and ankle M77.51 Arthritis of right ankle M19.071 Insertional Achilles tendinopathy M76.60 Hammertoe of right foot M20.41 Calcaneal spur of both feet M77.31; M77.32 Plantar fasciitis M72.2 Time Spent (min) 31
[2025-06-19 10:20] VITALS: BMI 24.8
== END 2025-06-19 11:15 | disposition home or self-care (01) ==
LOC: HO.HPODS 10:07
PROVIDERS: Visit Provider Student in an Organized Health Care Education/Training Program
DX: M79.672 Pain in left foot (principal); M20.42 Other hammer toe(s) (acquired), left foot; M77.52 Other enthesopathy of left foot and ankle; M25.571 Pain in right ankle and joints of right foot; G89.29 Other chronic pain; L85.8 Other specified epidermal thickening; S99.922A Unspecified injury of left foot, initial encounter; M77.51 Other enthesopathy of right foot and ankle; M19.071 Primary osteoarthritis, right ankle and foot; M76.60 Achilles tendinitis, unspecified leg; M20.41 Other hammer toe(s) (acquired), right foot; M77.31 Calcaneal spur, right foot; M77.32 Calcaneal spur, left foot; M72.2 Plantar fascial fibromatosis
CPT/HCPCS: 99214